=== PATIENT | male | born 1955 | race Caucasian/White ===

== ENCOUNTER 2019-07-04 20:54 | Inpatient (IN) | payer BC, SELFPAY ==
[2019-07-04] VITALS (15 sets, daily range): BP systolic 143–204; BP diastolic 69–114; PULSE 51–62; RESP 16–20; TEMP 36.4–36.8; O2SAT 96–100; BMI 42.4; BMI 39.9
--- NOTE | 2019-07-04 20:55 | EKG12_ITS ---
Test Reason : STROKE TEAM Blood Pressure : / mmHG Vent. Rate : 058 BPM Atrial Rate : 058 BPM P-R Int : 182 ms QRS Dur : 106 ms QT Int : 490 ms P-R-T Axes : -06 -21 137 degrees QTc Int : 481 ms Sinus bradycardia Left ventricular hypertrophy with repolarization abnormality Prolonged QT Abnormal ECG Confirmed by MILA ZARATE, QUINCY ([id number]), medical editor TIMMY LORA ([id number]) on 07/09/2019 10:55:10 AM Referred By: Anil Au Confirmed By:CHOCO ZARAGOZA MD
--- NOTE | 2019-07-04 20:55 | CT_ITS ---
STUDY: CT BRAIN WITHOUT CONTRAST REASON FOR EXAM: Male, 63 years old. LT SIDED WEAKNESS SINCE YESTERDAY -- PT TAKES COUMADIN FOR BLOOD CLOTS -- HX:DIABETES RADIATION DOSAGE (If Supplied By Facility): CTDIvol = ( 44.99 ) mGy, DLP = ( 846.73 ) mGycm TECHNIQUE: Transaxial CT imaging of the brain was performed without administration of intravenous contrast material. Individualized dose optimization techniques were used for this CT. COMPARISON: No relevant priors. FINDINGS: Normal calvarium. There are mild subcentimeter periventricular hypodensities. Normal basal ganglia and thalami. Normal brainstem. Normal cerebellum. There is no intracranial hemorrhage. Normal visualized paranasal sinuses. There is a 2 mm metallic foreign body within the soft tissues anterior to the right maxillary sinus CT/Brain/Head without Contrast IMPRESSION: Subcentimeter deep white matter likely old ischemic changes, if there is clinical concern for acute infarct follow-up MRI brain can be performed 2 mm metallic foreign body within the soft tissues anterior to the right maxillary sinus Telephone report was called to and discussed with Physician: Jonathan Bravo immediately after my review at 9:09 PM 07/04/2019 N.B. : The above information has been verbally conveyed by Nick Jones to Jonathan Bravo MD, on 07/04/2019 21:12:02 (ET). Electronically Signed: Nick Jones, at 21:15 EDT Tel , Service support ,
--- NOTE | 2019-07-04 20:55 | RAD_ITS ---
STUDY: X-RAY CHEST REASON FOR EXAM: Male, 63 years old. left sided weakness TECHNIQUE: Normal chest COMPARISON: None. FINDINGS: There is mild right basilar pulmonary opacity.. There is no demonstrated pleural abnormality. There is mild cardiomegaly. Normal mediastinum and cyndee. Normal visualized pulmonary arteries. Normal visualized aortic arch and descending thoracic aorta. Normal visualized thoracic spine. Normal visualized ribs, clavicles, and shoulders. There is no demonstrated abnormality of the visualized soft tissue structures of the upper abdomen. RAD/Chest 1 View IMPRESSION: Cardiomegaly Mild right basilar pulmonary opacity infiltrate versus subsegmental atelectasis Electronically Signed: Nick Jones, at 22:30 EDT Tel , Service support ,
--- NOTE | 2019-07-04 21:07 | CM.ED ---
Social Work Responding to stroke alert. No family present. Patient alert and speaking with staff. Patient stating family is aware. Patient unable to provide family contact information at this time. Andrzej SUMNER, MAYLIN
[2019-07-04 21:24] LABS: Absolute Neutrophil Count 6.1 X10^3/uL (2.0-7.7); Basophil# 0.09 X10^3/uL; Eosinophil# 0.63 X10^3/uL; Eosinophils% 6.8 % (0-5); Hematocrit 36.4 % (40-54); Hemoglobin 11.9 g/dL (13.0-16.5); Lymphocyte % 18.4 % (19-41); Mean Corp Hgb Conc 32.7 g/dL (32-36); Mean Corpuscular Hgb 30.3 pg (27.0-32.0); Mean Corpuscular Volume 92.6 fL (80-94); Mean Platelet Vol. 11.1 fl (6.2-12.0); Monocyte# 0.68 X10^3/uL; Monocyte% 7.4 % (0-10); NRBC Flagged by Analyzer 0 % (0-5); Neutrophil # 6.11 X10^3/uL (2.7-7.7); Neutrophil % 66.1 % (47-70); Platelet Count 205 K/mm3 (150-450); RBC Distribution Width CV 13.4 % (11.6-14.6); RBC Distribution Width SD 45.8 fl (35.1-43.9); Red Blood Count 3.93 M/mm3 (4.6-6.2); White Blood Count 9.2 K/mm3 (4.4-11.0)
[2019-07-04 21:42] LABS: International Normalized Ratio 1.7; Partial Thromboplast Time 28.9 Seconds (24.1-36.2); Prothrombin Time (Protime)PT. 19.3 SECONDS (11.7-14.9)
[2019-07-04 21:45] LABS: Anion Gap 5 (5-15); BUN 66 mg/dL (7-18); BUN/Creat Ratio 20.7 RATIO (10-20); Calcium,Total 8.8 mg/dL (8.5-10.1); Chloride 101 mmol/L (98-107); Creatinine, Serum 3.19 mg/dL (0.70-1.30); EST Glomerular Filtration Rate 21 mL/min (>60); Est Glom Filt Rate - Afr Amer 25 mL/min (>60); Estimated Creatinine Clearance 21.39 ml/min; Glucose 327 mg/dL (74-106); Potassium 3.6 mmol/L (3.5-5.1); Sodium Level 137 mmol/L (136-145)
--- NOTE | 2019-07-04 22:10 | ED.VIS.GEN ---
History of Present Illness Chief Complaint: Weakness Informant: Patient Onset: Yesterday Narrative: Presents from home by EMS with stroke team initiated prior to arrival. Reported onset of symptoms 5 PM yesterday over 24 hours ago of left-sided weakness. He is a diabetic with no stroke history. He is on warfarin for history of recurrent DVT and PE. Denies headache or visual changes. No speech changes. States was bending over yesterday felt pain in his back however no radicular symptoms when he had trouble walking. States symptoms persistent throughout the day. Does admit to history of chronic kidney disease followed by nephrology in [place]. Prior similar symptoms: No Past Medical History - Allergies and Home Meds Allergies/Adverse Reactions: Allergies No Known Allergies Allergy (Verified 07/04/19 21:13) Primary Care Physician: NOT,DEFINED [Primary Care Provider] - Past Medical History: - - Hypertension, chronic kidney disease, DVT and PE Smoking Status: Never smoker Review of Systems General: Denies: Chills, Fever, Sweats Eyes: Denies: Visual changes - bilaterally, Diplopia ENT: Denies: Rhinorrhea, Sore throat Cardiovascular: Denies: Chest pain, Palpitations Respiratory: Denies: Dyspnea, Cough, Dyspnea on exertion Gastrointestinal: Denies: Abdominal pain, Nausea, Vomiting, Diarrhea, Melena, Hematochezia Genitourinary: Denies: Dysuria, Hematuria, Frequency Musculoskeletal: Denies: Back pain, Extremity Pain Skin: Denies: Rash, Wounds Neurological: Reports: Weakness. Denies: Headache, Numbness Physical Exam Vital Signs/Narrative: Vital Signs Temp Pulse Resp BP Pulse Ox 07/04/19 22:05 61 18 183/74 H 98 07/04/19 21:57 55 L 18 199/76 H 97 07/04/19 21:34 56 L 16 199/79 H 98 07/04/19 21:14 60 16 184/89 H 98 07/04/19 21:13 98 07/04/19 21:02 97.6 F L 62 16 200/99 H 98 07/04/19 20:55 97.6 F L 58 L 16 147/89 H 100 07/04/19 20:54 97.6 F L 60 16 200/99 H 97 Inital Vital Signs reviewed: Yes General: Well nourished, Well developed, No Acute Distress Head: Normocephalic, Atraumatic Eyes: Perrl, EOMI ENT: Moist mucous membranes, No rhinorrhea Neck: Supple, Nontender Cardiovascular: Regular rate, Regular rhythm, No murmurs Respiratory: No distress, CTA bilaterally, Chest nontender Abdomen: Soft, Nontender, Nondistended, Normal bowel sounds Back: Nontender, Normal Inspection Extremities: Nontender, No edema Skin: Normal color, No rash Neurological: Alert, Oriented x3, Cranial nerves II-XII grossly intact, Normal Sensation, - - NIH equals 3 for drifting her left arm and leg and ataxia left upper extremity. There was slight weakness of left lower extremity compared to the right hip flexors. Psychological: Normal affect, Normal Mood Diagnostic/Tx/Re-eval Clinical Impression(s) from Imaging Studies Brain CT 07/04/19 20:55 IMPRESSION: Subcentimeter deep white matter likely old ischemic changes, if there is clinical concern for acute infarct follow-up MRI brain can be performed 2 mm metallic foreign body within the soft tissues anterior to the right maxillary sinus Telephone report was called to and discussed with Physician: Jonathan Bravo immediately after my review at 9:09 PM 07/04/2019 N.B. : The above information has been verbally conveyed by Jonathan Nuñez MD, on 07/04/2019 21:12:02 (ET). Electronically Signed: Nick Jones, at 21:15 EDT Tel , Service support , ADDENDUM: 07/04/192121 IMPRESSION: Subcentimeter deep white matter likely old ischemic changes, if there is clinical concern for acute infarct follow-up MRI brain can be performed 2 mm metallic foreign body within the soft tissues anterior to the right maxillary sinus Telephone report was called to and discussed with Physician: Jonathan Bravo immediately after my review at 9:09 PM 07/04/2019 N.B. : The above information has been verbally conveyed by Jonathan Nuñez MD, on 07/04/2019 21:12:02 (ET). Electronically Signed: Nick Jones at 21:15 EDT Tel , Service support , Chest x-ray one-view portable: Reviewed by myself shows no acute process. Abnormal Lab Results 07/04/19 07/04/19 07/04/19 21:15 21:15 21:15 WBC 9.2 RBC 3.93 L Hgb 11.9 L Hct 36.4 L MCV 92.6 MCH 30.3 MCHC 32.7 RDW Std Deviation 45.8 H RDW Coeff of Conner 13.4 Plt Count 205 MPV 11.1 Immature Gran % (Auto) 0.300 Neut % (Auto) 66.1 Lymph % (Auto) 18.4 L [place] % (Auto) 7.4 Eos % (Auto) 6.8 H Baso % (Auto) 1.0 Absolute Neuts (auto) 6.1 Absolute Lymphs (auto) 1.70 Nucleated RBC % 0 PT 19.3 H INR 1.7 APTT 28.9 Sodium 137 Potassium 3.6 Chloride 101 Carbon Dioxide 31.0 Anion Gap 5 BUN 66 H Creatinine 3.19 H Estim Creat Clear Calc 21.39 Est GFR (MDRD) Af Amer 25 L Est GFR (MDRD) Non-Af 21 L BUN/Creatinine Ratio 20.7 H Glucose 327 H Calcium 8.8 Troponin I 0.041 - EKG Initial EKG Interpretation: Sinus Rhythm - Sinus rate of 58, no ST changes. There is T wave inversions in 1 and aVL. - Medical Decision Making Stroke team initiated continued on arrival. His NIH is a 3. CT head discussing with radiologist was negative for bleeds or acute process. I spoke with stroke neurologist with patient on warfarin and outside the window, no indication for TPA. They did recommend stroke work-up as an inpatient. Labs stable with INR 1.7 creatinine of 3, underlying chronic kidney disease with unknown baseline per patient. Records are out in [place]. EKG is sinus rhythm. I spoke with hospitalist, Dr. Au for admission. ED Disposition - Plan for ED Patient: Disposition: Acute Care Hospital [facility] Diagnosis: CVA (cerebral vascular accident), Left-sided weakness, Chronic kidney disease Referrals: NOT,DEFINED [Primary Care Provider] -
--- NOTE | 2019-07-04 22:53 | PCM.HP.STD ---
Problem List (1) CVA (cerebral vascular accident) Status: Acute (2) Left-sided weakness Status: Acute (3) Chronic kidney disease Status: Chronic History of Present Illness Date of Admission: 07/04/19 Chief Complaint: left sided weakness The patient is a 63 year old M significant history of morbid obesity; hypertension; diabetes mellitus; DVT and PE who presented to the emergency department with left-sided weakness. Patient reports weakness at his left upper extremity and his left lower extremity. His weakness started a day before presentation( more than 24 hours before presentation). Further he reports that a day before his weakness began he had pain in his back from bending over. Past Medical History Past Medical History (Chronic Problems): Chronic Problems Chronic kidney disease (Chronic) Allergies No Known Allergies Allergy (Verified 07/04/19 21:13) Home Medications: Ambulatory Orders Medication Instructions Recorded Clonidine HCl [Catapres] 0.3 mg PO DAILY 07/04/19 Clonidine Patch [Catapres-Tts3] 0.3 mg TRANSDERM. 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 Multiple surgeries of left leg with metal plate in place. IVC filter in place. Smoking Status: Former smoker Alcohol: Occasional - *Family History Maternal History Items: Cancer - lungs, Diabetes Paternal History Items: Stroke Review of Systems Constitutional: Denies: Chills, Fever, Weight Change HEENT: Denies: Head Aches, Sinus Congestion, Sinus Drainage Cardiovascular: Denies: Chest Pain, Palpitations Respiratory: Denies: Cough, Shortness of breath at rest, Sputum production Gastrointestinal: Denies: Abdominal Pain, Nausea, Vomiting Genitourinary: Denies: Dysuria Musculoskeletal: Reports: Back Pain. Denies: Joint Pain, Joint Tenderness Skin: Denies: Rash, Wounds Neurological: Reports: Focal weakness. Denies: Numbness, Tingling Psychiatric: Denies: Anxiety, Depression, Homicidal Ideations, Suicidal Ideations Hematologic/ Lymphatic: Denies: Easy Bruising, Easy Bleeding VTE Information - Inpt Only VTE Present on Admission: No VTE Mechan Device Prophylaxis: None VTE Pharm Prophylaxis ordered?: No Reason prophylaxis not ordered:: Treatment Not Indicated - Continue Coumadin for history of DVT and PE. Patient Problems: Active and Suspected Problems CVA (cerebral vascular accident) (Acute) Left-sided weakness (Acute) - Physical Exam Vitals/I&O's: Vital Signs Temp Pulse Resp BP Pulse Ox 98.1 F 55 L 16 170/101 H 98 07/04/19 22:33 07/04/19 22:33 07/04/19 22:33 07/04/19 22:33 07/04/19 22:33 Oxygen Delivery Method Room Air Weight: 119.3 kg Body Mass Index (BMI) 42.4 Finger Stick Blood Glucose 370 General: Alert, Oriented x3, Cooperative HEENT: Atraumatic, PERRLA, EOMI, Normocephalic Neck: Supple, No JVD, Negative Carotid Bruits Lungs: Clear to auscultation, Normal air movement Cardiovascular: Regular rate, Normal S1, Normal S2, No murmurs Abdomen: Bowel Sounds Present, Soft, Non Tender Extremities: No edema, Capillary Refill Less than 3 Seconds Skin: No rashes, No breakdown Musculoskeletal: No Tenderness to Palpation of Joints or Extremities Neurological: Cranial nerves II-XII grossly intact, Deep Tendon Reflexes 2+/4 and Symmetrical, - - Motor strength in left upper and left lower extremity 4 out of 5. Motor strength in right upper and right lower extremity 5 out of 5. Dysmetria of hands of left hand. Cannot perform [id number] test bilaterally; reports secondary to previous injusries Psych/Mental Status: Normal Affect, Appropriate Laboratory Results 07/04/19 21:15: WBC 9.2, RBC 3.93 L, Hgb 11.9 L, Hct 36.4 L, MCV 92.6, MCH 30.3, MCHC 32.7, RDW Std Deviation 45.8 H, RDW Coeff of Conner 13.4, Plt Count 205, MPV 11.1, Immature Gran % (Auto) 0.300, Neut % (Auto) 66.1, Lymph % (Auto) 18.4 L, [place] % (Auto) 7.4, Eos % (Auto) 6.8 H, Baso % (Auto) 1.0, Absolute Neuts (auto) 6.1, Absolute Lymphs (auto) 1.70, Nucleated RBC % 0 07/04/19 21:15: PT 19.3 H, INR 1.7, APTT 28.9 07/04/19 21:15: Sodium 137, Potassium 3.6, Chloride 101, Carbon Dioxide 31.0, Anion Gap 5, BUN 66 H, Creatinine 3.19 H, Estim Creat Clear Calc 21.39, Est GFR (MDRD) Af Amer 25 L, Est GFR (MDRD) Non-Af 21 L, BUN/Creatinine Ratio 20.7 H, Glucose 327 H, Calcium 8.8, Troponin I 0.041 Assessment/Plan All Active Problems CVA (cerebral vascular accident) (Acute) Left-sided weakness (Acute) The patient is a 63 year old M significant history of morbid obesity; hypertension; diabetes mellitus; DVT and PE who presented to the emergency department with left-sided weakness distant with likely CVA. Likely Acute CVA Subjective and objective findings of left-sided weakness; and ataxia of left upper extremity. NINDS NIH Scale at the was 3 CT of the head showed subcentimeter dep white matter likely old ischemic changes; MRI was recommended for concerns. Also noted was 2 mm metallic foreign body in right maxillary sinus -Check Hba1c, Lipid level Physical therapy, occupational therapy and to work with patient. N.p.o. until bedside swallow eval. Daily aspirin. High intensity statin Patient is outside window of permissive HTN. Continue blood pressure meds. Add PRN hydralazine for systolic blood pressure more than 180. Because of poor kidney function will avoid contrast. Carotid ultrasound ordered. Echocardiogram ordered. 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 On presentation his creatinine was 3.19. No prior records to compare with. 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 Obtain records. Trend BMP. History f DVT and PE INR was 1.7, subtherapeutic on presentation. Escalate Coumadin. Trend INR. Also reportedly he has an IVC filter. Diabetes mellitus with nephropathy On presentation blood glucose was elevated. Adjust home basal and prandial insulin. Add correction scale insulin. Accu-Chek QA CHS. QTC prolongation QTC on presentation was 481. Avoid QTC prolongation drugs. Morbid obesity: BMI of 42.5. Complicates care. Recommend lifestyle modification. DVT Prophylaxis Not indicated since patient is on Coumadin Inpatient E&M: 23906 Init Hosp L2
[2019-07-04] MEDS: 0.9% Normal Saline 1,000 ML 75 ML IV (23:09)
--- NOTE | 2019-07-04 23:28 | ECHOD_ITS ---
Reason For Study: TIA/CVA Procedure This was a 2D Doppler, Color Flow transthoracic echocardiogram. Exam performed portable in patient room. Left Ventricle Normal LV size. Concentric left ventricular hypertrophy. The estimated ejection fraction is 55 %. Stage 2 diastolic dysfunction. No regional wall motion abnormalities noted. Right Ventricle Normal RV size. Normal systolic function. Atria The left atrium is mildly enlarged. Normal right atrium. No doppler evidence for ASD. Bubble contrast study negative for right to left interatrial shunt. Mitral Valve There is no mitral valve stenosis. No mitral valve insufficiency. Tricuspid Valve There is no tricuspid stenosis. Trivial tricuspid valve insufficiency. Unable to estimate RV systolic pressure due to insufficient tricuspid regurgitant envelope. Aortic Valve Trisinus/trileaflet aortic valve. There is no aortic stenosis. No aortic valve insufficiency. Pulmonic Valve There is no pulmonic valvular stenosis. No pulmonic valve insufficiency. Great Vessels Normal aortic root. Pericardium/Pleural No pericardial effusion. Medication Performed a rapid injection of agitated mix of 9 cc saline and 1cc air to assess for atrial septal defect. x 2. MMode/2D Measurements & Calculations LVIDd: 5.4 cm IVSd: 1.7 cm Ao root diam: 3.4 cm LVIDs: 4.0 cm LVPWd: 1.7 cm RVDd: 3.9 cm FS: 25.9 % LAV(MOD-bp): 95.4 ml LA A4 area: 29.4 cm2 LA dimension(2D): 3.8 cm LAV(MOD-bp) Indexed: 42.5 ml/m2 LAV(MOD-sp2): 89.2 ml LAV(MOD-sp4): 100.2 ml RA A4 area: 24.0 cm2 Time Measurements MV dec time: 0.30 sec Doppler Measurements & Calculations MV E max finn: 58.2 cm/sec Lat Peak E' Finn: 4.6 cm/sec Med Peak E' Finn: 4.1 cm/sec MV A max finn: 86.1 cm/sec E/E' lat: 12.5 E/E' med: 14.3 MV E/A: 0.68 Ao V2 max: 122.8 cm/sec LV V1 max: 91.5 cm/sec PA V2 max: 99.5 cm/sec Ao max P.0 mmHg LV V1 max P.3 mmHg Interpretation Summary Concentric left ventricular hypertrophy. The estimated ejection fraction is 55 %. Stage 2 diastolic dysfunction. Bubble contrast study negative for right to left interatrial shunt. The left atrium is mildly enlarged. Ordering Physician: Anil Au Referring Physician: Aliza Tucker Performed By: Nieves Ac, MORTEZACS, RVT
--- NOTE | 2019-07-04 23:28 | CDU_ITS ---
Reason For Study: CVA Rt. Velocities/BP Lt. Velocities/BP Prox CCA 86.5/9.5 cm/sec. Prox CCA 126.6/11.5 cm/sec. Mid CCA 73.4/9.5 cm/sec. Mid CCA 91.6/13.5 cm/sec. Dist CCA 78.6/9.5 cm/sec. Dist CCA 68.5/9.1 cm/sec. Prox ICA 51.3/13.5 cm/sec. Prox ICA 78.4/19 cm/sec. Mid ICA 67.4/19.2 cm/sec. Mid ICA 74/14.6 cm/sec. Dist ICA 68.3/12.6 cm/sec. Dist ICA 66.3/14.5 cm/sec. Rt. ICA/CCA = 0.88. Lt. ICA/CCA = 0.86. Prox ECA 108.6 cm/sec. Prox ECA 86.1 cm/sec. Rt. Vert. 40/10.7 cm/sec. Lt. Vert. 36/8.1 cm/sec. Right Extracranial There is intimal thickening but no significant atherosclerotic plaque noted in the right common carotid artery. There is heterogeneous, irregular atherosclerotic plaque noted in the right internal carotid artery. There is intimal thickening but no significant atherosclerotic plaque noted in the right external carotid artery. Antegrade flow is noted in the right vertebral artery. Left Extracranial There is intimal thickening but no significant atherosclerotic plaque noted in the left common carotid artery. There is heterogeneous, irregular atherosclerotic plaque noted in the left internal carotid artery. The atherosclerotic plaque causes acoustic shadowing. The left external carotid artery is not well visualized. Antegrade flow is noted in the left vertebral artery. Procedure Carotid Duplex 20798. Exam performed portable in patient room. 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 <50% stenosis right external carotid Calcific plague at the proximal left internal carotid <50% stenosis left proximal internal carotid <50% stenosis left external carotid Patent, antegrade vertebrals bilaterally Ordering Physician: Anil Au Referring Physician: Aliza Tucker Performed By: Danyelle Lopez RVT
[2019-07-05] VITALS (19 sets, daily range): BP systolic 113–193; BP diastolic 65–81; PULSE 43–60; RESP 16–20; TEMP 36.3–36.9; O2SAT 95–99; BMI 39.9
[2019-07-05] MEDS: Insulin Lispro 100 UNIT/ML INSULN.PEN 10 UNIT SC ×4 (00:28→17:17)
[2019-07-05] MEDS: CLARIFY ORDER 1 EACH NOTE (00:32)
[2019-07-05] MEDS: Atorvastatin Calcium 80 MG Tablet PO ×2 (00:32→21:28)
[2019-07-05 00:45] LABS: Bedside Glucose 317 mg/dL (70-110)
[2019-07-05] MEDS: hydrALAZINE 50 MG Tablet 100 MG PO ×3 (05:13→21:24)
[2019-07-05 06:08] LABS: Absolute Lymphocyte Count 1.92 X10^3/uL (0.83-4.51); Absolute Neutrophil Count 4.5 X10^3/uL (2.0-7.7); Basophil# 0.08 X10^3/uL; Eosinophil# 0.64 X10^3/uL; Eosinophils% 8.2 % (0-5); Hemoglobin 11.7 g/dL (13.0-16.5); Lymphocyte # 1.92 X10^3/ul (4.0); Lymphocyte % 24.5 % (19-41); Mean Corp Hgb Conc 31.6 g/dL (32-36); Mean Corpuscular Hgb 29.5 pg (27.0-32.0); Mean Corpuscular Volume 93.4 fL (80-94); Mean Platelet Vol. 11.5 fl (6.2-12.0); Monocyte# 0.67 X10^3/uL; Monocyte% 8.6 % (0-10); NRBC Flagged by Analyzer 0 % (0-5); Neutrophil % 57.4 % (47-70); Platelet Count 218 K/mm3 (150-450); RBC Distribution Width CV 13.6 % (11.6-14.6); RBC Distribution Width SD 46.1 fl (35.1-43.9); Red Blood Count 3.96 M/mm3 (4.6-6.2); White Blood Count 7.8 K/mm3 (4.4-11.0)
[2019-07-05 06:22] LABS: International Normalized Ratio 1.6; Prothrombin Time (Protime)PT. 18.6 SECONDS (11.7-14.9)
[2019-07-05 06:29] LABS: Anion Gap 7 (5-15); BUN 60 mg/dL (7-18); BUN/Creat Ratio 21.2 RATIO (10-20); Calcium,Total 8.5 mg/dL (8.5-10.1); Chloride 102 mmol/L (98-107); Cholesterol 182 mg/dL (200); Creatinine, Serum 2.83 mg/dL (0.70-1.30); EST Glomerular Filtration Rate 24 mL/min (>60); Est Glom Filt Rate - Afr Amer 29 mL/min (>60); Estimated Creatinine Clearance 24.11 ml/min; Glucose 187 mg/dL (74-106); High Density Lipoprotein 30 mg/dL; Sodium Level 137 mmol/L (136-145); Triglycerides 216 mg/dL; Very Low Density Lipoprotein 43 mg/dL (5-40)
[2019-07-05 06:55] LABS: Bedside Glucose 184 mg/dL (70-110)
[2019-07-05] MEDS: Insulin Lispro 100 UNIT/ML INSULN.PEN SC ×3 (09:15→21:23)
[2019-07-05] MEDS: cloNIDine HCl 0.1 MG Tablet 0.3 MG PO (09:16)
[2019-07-05] MEDS: Aspirin 81 MG TAB.CHEW PO (09:16)
[2019-07-05] MEDS: hydroCHLOROthiazide 25 MG Tablet 50 MG PO (09:18)
--- NOTE | 2019-07-05 10:00 | PN_ITS ---
<Norma Nelson - Last Filed: 07/05/19 12:27> Patient Problems: Active and Suspected Problems CVA (cerebral vascular accident) (Acute) Left-sided weakness (Acute) Subjective: Patient seen and examined. Left upper extremity and left lower extremity ataxia and strength slightly improved. Denies new neurologic symptoms or focal deficits. Patient agreeable to rehab. Tearful during assessment and concerned about getting left-sided return of function. - Physical Exam Vitals/I&O's: Vital Signs Temp Pulse Resp BP Pulse Ox 97.7 F L 46 L 16 193/80 H 96 07/05/19 08:00 07/05/19 08:00 07/05/19 08:00 07/05/19 08:00 07/05/19 08:00 Oxygen Delivery Method Room Air Weight: 247 lb 9.266 oz Body Mass Index (BMI) 39.9 Finger Stick Blood Glucose 370 Intake and Output for Last 24 Hours 07/03/19 07/04/19 07/05/19 23:59 23:59 23:59 Output Total 950 / 950 Balance -950 / -950 General: Alert, Oriented x3, Cooperative HEENT: Atraumatic, PERRLA, EOMI, Normocephalic Neck: Supple, No JVD, Negative Carotid Bruits Lungs: Clear to auscultation, Normal air movement Cardiovascular: Regular rate, Regular Rhythm, Normal S1, Normal S2, No murmurs Abdomen: Bowel Sounds Present, Soft, Non Tender, Non-Distended Extremities: No clubbing, No cyanosis, No edema, Capillary Refill Less than 3 Seconds Skin: No rashes, No breakdown Musculoskeletal: No Tenderness to Palpation of Joints or Extremities Neurological: Cranial nerves II-XII grossly intact, - - Left upper extremity and left lower extremity weakness, left lower extremity drift. Left-sided ataxia. Psych/Mental Status: Normal Affect, Appropriate Laboratory Results 07/04/19 21:15: WBC 9.2, RBC 3.93 L, Hgb 11.9 L, Hct 36.4 L, MCV 92.6, MCH 30.3, MCHC 32.7, RDW Std Deviation 45.8 H, RDW Coeff of Conner 13.4, Plt Count 205, MPV 11.1, Immature Gran % (Auto) 0.300, Neut % (Auto) 66.1, Lymph % (Auto) 18.4 L, Schley % (Auto) 7.4, Eos % (Auto) 6.8 H, Baso % (Auto) 1.0, Absolute Neuts (auto) 6.1, Absolute Lymphs (auto) 1.70, Nucleated RBC % 0 07/04/19 21:15: PT 19.3 H, INR 1.7, APTT 28.9 07/04/19 21:15: Sodium 137, Potassium 3.6, Chloride 101, Carbon Dioxide 31.0, Anion Gap 5, BUN 66 H, Creatinine 3.19 H, Estim Creat Clear Calc 21.39, Est GFR (MDRD) Af Amer 25 L, Est GFR (MDRD) Non-Af 21 L, BUN/Creatinine Ratio 20.7 H, Glucose 327 H, Calcium 8.8, Troponin I 0.041 07/05/19 00:25: POC Glucose 317 H 07/05/19 05:20: Sodium 137, Potassium 3.0 L, Chloride 102, Carbon Dioxide 28.0, Anion Gap 7, BUN 60 H, Creatinine 2.83 H, Estim Creat Clear Calc 24.11, Est GFR (MDRD) Af Amer 29 L, Est GFR (MDRD) Non-Af 24 L, BUN/Creatinine Ratio 21.2 H, Glucose 187 H, Calcium 8.5, Triglycerides 216 H, Cholesterol 182, LDL Cholesterol 109, VLDL Cholesterol 43 H, HDL Cholesterol 30 L 07/05/19 05:20: WBC 7.8, RBC 3.96 L, Hgb 11.7 L, Hct 37.0 L, MCV 93.4, MCH 29.5, MCHC 31.6 L, RDW Std Deviation 46.1 H, RDW Coeff of Conner 13.6, Plt Count 218, MPV 11.5, Immature Gran % (Auto) 0.300, Neut % (Auto) 57.4, Lymph % (Auto) 24.5, Schley % (Auto) 8.6, Eos % (Auto) 8.2 H, Baso % (Auto) 1.0, Absolute Neuts (auto) 4.5, Absolute Lymphs (auto) 1.92, Nucleated RBC % 0 07/05/19 05:20: PT 18.6 H, INR 1.6 07/05/19 05:20: Hemoglobin A1c 9.0 H 07/05/19 06:48: POC Glucose 184 H Current Medications Acetaminophen (Tylenol) 650 mg PO Q6H PRN PRN PRN Reason: Pain Score 1-10/Temp > 100.7 F Aspirin (Aspirin, Baby) 81 mg PO DAILY@0800 [facility] Last Admin: 07/05/19 09:16 Dose: 81 mg Documented by: Atorvastatin Calcium (Lipitor) 80 mg PO QHS [facility] Last Admin: 07/05/19 00:32 Dose: 80 mg Documented by: Clonidine (Catapres) 0.3 mg PO DAILY [facility] Last Admin: 07/05/19 09:16 Dose: 0.3 mg Documented by: Clonidine HCl (Catapres-Tts3) 0.3 mg TRANSDERM. Q7D [facility] Dextrose (D50w Syringe) 0 gm IV X1 PRN; Protocol PRN Reason: Hypoglycemia Glucagon () 1 mg IM .X1 PRN PRN Reason: Hypoglycemia Hydralazine HCl (Apresoline) 100 mg PO TID [facility] Last Admin: 07/05/19 05:13 Dose: 100 mg Documented by: Hydralazine HCl (Apresoline Iv) 5 mg IV Q4H PRN PRN PRN Reason: sbp > 180 Hydrochlorothiazide (Hctz) 50 mg PO DAILY [facility] Last Admin: 07/05/19 09:18 Dose: 50 mg Documented by: Sodium Chloride () 250 mls @ 15 mls/hr IV .[id number] PRN PRN Reason: Saline Flush Sodium Chloride () 250 mls @ 15 mls/hr IV .[id number] PRN PRN Reason: Additional IVPB Infusion Insulin Glargine (Lantus (Bkc)) 15 units SC BID [facility] Last Admin: 07/05/19 09:19 Dose: 15 u Documented by: Insulin Human Lispro (Humalog Kwikpen (Bkc)) 10 unit SC BREAKFAST [facility] Last Admin: 07/05/19 09:15 Dose: 10 units Documented by: Insulin Human Lispro (Humalog Kwikpen (Bkc)) 10 unit SC DINNER [facility] Insulin Human Lispro (Humalog Kwikpen (Bkc)) 10 unit SC LUNCH [facility] Insulin Human Lispro (Humalog Kwikpen (Bkc)) 0 unit SC ACHS [facility]; Protocol Last Admin: 07/05/19 09:15 Dose: 2 units Documented by: Labetalol HCl (Trandate) 200 mg PO TID [facility] Last Admin: 07/05/19 05:12 Dose: Not Given Documented by: Sodium Chloride () 10 - 40 ml IV UD PRN PRN Reason: SALINE FLUSH Warfarin Sodium (Coumadin (Pbkc)) 8 mg PO DAILY@1700 [facility] Last Admin: 07/05/19 00:31 Dose: 8 mg Documented by: Medical Necessity - Tobacco Use Smoking Status: Former smoker Tobacco Use: Cigarettes Assessment/Plan All Active Problems CVA (cerebral vascular accident) (Acute) Left-sided weakness (Acute) 1. Suspected acute CVA with left-sided weakness-brain CT without acute infarct. Unable to have MRI. Continue aspirin, statin. PT/OT/ST. Consult tele- neurology. Patient agreeable to Rehab Unit at discharge. 2. Hypertension-poorly controlled. Continue home clonidine, hydralazine, hydrochlorothiazide and labetalol. Adjust as necessary. 3. Hyperlipidemia-continue statin. 4. Type 2 diabetes mellitus-continue home insulin regimen. Hemoglobin A1c 9%. 5. Chronic kidney disease stage III-continue outpatient follow-up with nephrology. 6. 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 7. CHRISTIAN-unable to tolerate CPAP. 8. Obesity-encouraged diet and lifestyle modifications. DVT prophylaxis-Coumadin This patient was seen by REBA Mercedes under the supervision of Dr. Del Toro. <Fredrick Del Toro - Last Filed: 07/05/19 15:10> - Physical Exam Vitals/I&O's: Vital Signs Temp Pulse Resp BP Pulse Ox 97.7 F L 58 L 17 113/65 98 07/05/19 11:25 07/05/19 11:25 07/05/19 11:25 07/05/19 11:25 07/05/19 11:25 Oxygen Delivery Method Room Air Weight: 112.3 kg Body Mass Index (BMI) 39.9 Finger Stick Blood Glucose 370 Intake and Output for Last 24 Hours 07/03/19 07/04/19 07/05/19 23:59 23:59 23:59 Intake Total 660 / 660 Output Total 1600 / 1600 Balance -940 / -940 Laboratory Results 07/04/19 21:15: WBC 9.2, RBC 3.93 L, Hgb 11.9 L, Hct 36.4 L, MCV 92.6, MCH 30.3, MCHC 32.7, RDW Std Deviation 45.8 H, RDW Coeff of Conner 13.4, Plt Count 205, MPV 11.1, Immature Gran % (Auto) 0.300, Neut % (Auto) 66.1, Lymph % (Auto) 18.4 L, Schley % (Auto) 7.4, Eos % (Auto) 6.8 H, Baso % (Auto) 1.0, Absolute Neuts (auto) 6.1, Absolute Lymphs (auto) 1.70, Nucleated RBC % 0 07/04/19 21:15: PT 19.3 H, INR 1.7, APTT 28.9 07/04/19 21:15: Sodium 137, Potassium 3.6, Chloride 101, Carbon Dioxide 31.0, Anion Gap 5, BUN 66 H, Creatinine 3.19 H, Estim Creat Clear Calc 21.39, Est GFR (MDRD) Af Amer 25 L, Est GFR (MDRD) Non-Af 21 L, BUN/Creatinine Ratio 20.7 H, Glucose 327 H, Calcium 8.8, Troponin I 0.041 07/05/19 00:25: POC Glucose 317 H 07/05/19 05:20: Sodium 137, Potassium 3.0 L, Chloride 102, Carbon Dioxide 28.0, Anion Gap 7, BUN 60 H, Creatinine 2.83 H, Estim Creat Clear Calc 24.11, Est GFR (MDRD) Af Amer 29 L, Est GFR (MDRD) Non-Af 24 L, BUN/Creatinine Ratio 21.2 H, Glucose 187 H, Calcium 8.5, Triglycerides 216 H, Cholesterol 182, LDL Cholesterol 109, VLDL Cholesterol 43 H, HDL Cholesterol 30 L 07/05/19 05:20: WBC 7.8, RBC 3.96 L, Hgb 11.7 L, Hct 37.0 L, MCV 93.4, MCH 29.5, MCHC 31.6 L, RDW Std Deviation 46.1 H, RDW Coeff of Conner 13.6, Plt Count 218, MPV 11.5, Immature Gran % (Auto) 0.300, Neut % (Auto) 57.4, Lymph % (Auto) 24.5, Schley % (Auto) 8.6, Eos % (Auto) 8.2 H, Baso % (Auto) 1.0, Absolute Neuts (auto) 4.5, Absolute Lymphs (auto) 1.92, Nucleated RBC % 0 07/05/19 05:20: PT 18.6 H, INR 1.6 07/05/19 05:20: Hemoglobin A1c 9.0 H 07/05/19 06:48: POC Glucose 184 H 07/05/19 11:36: POC Glucose 192 H Current Medications Acetaminophen (Tylenol) 650 mg PO Q6H PRN PRN PRN Reason: Pain Score 1-10/Temp > 100.7 F Aspirin (Aspirin, Baby) 81 mg PO DAILY@0800 [facility] Last Admin: 07/05/19 09:16 Dose: 81 mg Documented by: Atorvastatin Calcium (Lipitor) 80 mg PO QHS [facility] Last Admin: 07/05/19 00:32 Dose: 80 mg Documented by: Clonidine (Catapres) 0.3 mg PO DAILY [facility] Last Admin: 07/05/19 09:16 Dose: 0.3 mg Documented by: Clonidine HCl (Catapres-Tts3) 0.3 mg TRANSDERM. Q7D [facility] Dextrose (D50w Syringe) 0 gm IV X1 PRN; Protocol PRN Reason: Hypoglycemia Glucagon () 1 mg IM .X1 PRN PRN Reason: Hypoglycemia Hydralazine HCl (Apresoline) 100 mg PO TID [facility] Last Admin: 07/05/19 05:13 Dose: 100 mg Documented by: Hydralazine HCl (Apresoline Iv) 5 mg IV Q4H PRN PRN PRN Reason: sbp > 180 Hydrochlorothiazide (Hctz) 50 mg PO DAILY [facility] Last Admin: 07/05/19 09:18 Dose: 50 mg Documented by: Sodium Chloride () 250 mls @ 15 mls/hr IV .[id number] PRN PRN Reason: Saline Flush Sodium Chloride () 250 mls @ 15 mls/hr IV .[id number] PRN PRN Reason: Additional IVPB Infusion Insulin Glargine (Lantus ([facility])) 15 units SC BID [facility] Last Admin: 07/05/19 09:19 Dose: 15 u Documented by: Insulin Human Lispro (Humalog Kwikpen ([facility])) 10 unit SC BREAKFAST [facility] Last Admin: 07/05/19 09:15 Dose: 10 units Documented by: Insulin Human Lispro (Humalog Kwikpen (Bkc)) 10 unit SC DINNER [facility] Insulin Human Lispro (Humalog Kwikpen (Bkc)) 10 unit SC LUNCH [facility] Last Admin: 07/05/19 11:38 Dose: 10 units Documented by: Insulin Human Lispro (Humalog Kwikpen (Bkc)) 0 unit SC ACHS [facility]; Protocol Last Admin: 07/05/19 11:39 Dose: 2 units Documented by: Labetalol HCl (Trandate) 200 mg PO TID [facility] Last Admin: 07/05/19 05:12 Dose: Not Given Documented by: Potassium Chloride (K-Dur) 40 meq PO BIDCM [facility] Stop: 07/05/19 17:01 Last Admin: 07/05/19 11:37 Dose: 40 meq Documented by: Sodium Chloride () 10 - 40 ml IV UD PRN PRN Reason: SALINE FLUSH Warfarin Sodium (Coumadin (Pbkc)) 8 mg PO DAILY@1700 [facility] Last Admin: 07/05/19 00:31 Dose: 8 mg Documented by: Assessment/Plan This patient was seen in conjunction with REBA Mercedes . I have independently interviewed and examined the patient and reviewed pertinent historical, laboratory, and other data. Please refer to REBA Mercedes note for details of this patient's presentation, findings, and recommendations. I have reviewed REBA Mercedes note and concur with documented findings. In brief, patient is a 63-year-old gentleman with single risk factors including poorly controlled diabetes mellitus type 2 as well as hypertension who presented with left-sided weakness CT was negative for acute CVA an MRI could not be obtained in view of patient having a metal in the skull Physical Examination: GENERAL: cooperative HEENT: Atraumatic; EYES; Anicteric, Normal Conjunctiva NECK; supple, normal thyroid, RESPIRATORY: Diminished to auscultation CARDIOVASCULAR: Regular S1 S2, GI: soft, normoactive bowel sounds, : No Renal angle tenderness; EXTREMITIES: No edema, no clubbing, MUSCULOSKELETAL: no muscle waisting NEURO: Awake; left sided weakness (3/5 in 4/5 in the leg) SKIN: No Rash PSYCH; Flat affect Assessment: 1. Assessed suspected acute ischemic CVA with left-sided weakness ?Patient has been admitted to monitored bed where she is currently being managed per protocol. Patient was seen in consultation by neurology note and recommendations reviewed 2. Hypertension ~ blood pressure controlled, home medications continued with dose adjustment as needed 3. Dyslipidemia ~patient is on statin therapy, continued at home dose 4. Diabetes mellitus type II ~C controlled with a hemoglobin A1c of 9 ;patient's oral hypoglycemics held. Placed on long acting insulin, Accu-Cheks a.c. and at bedtime and covered with sliding scale insulin . History of previous DVT/PE ?Status post IVC filter as well as use of Coumadin INR was however subtherapeutic on admission 5. Obstructive sleep apnea ?Patient apparently unable to tolerate CPAP 6. Obesity with BMI of 40 ?Weight loss advised 7. DVT prophylaxis patient already on Coumadin no additional measures required Recommendations: 1. I have discussed the results of my overview and impressions with the patient 2. Options for management were reviewed Inpatient E&M: [id number] [facility] L3
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
--- NOTE | 2019-07-05 12:28 | CT_ITS ---
STUDY: CT BRAIN WITHOUT CONTRAST REASON FOR EXAM: Male, 63 years old. Follow-up stroke. RADIATION DOSAGE (If Supplied By Facility): CTDIvol = ( 60.81 ) mGy, DLP = ( 1089.89 ) mGycm TECHNIQUE: Transaxial CT imaging of the brain was performed without administration of intravenous contrast material. Coronal and sagittal reconstructions were performed. Individualized dose optimization techniques were used for this CT. COMPARISON: CT head without contrast 07/04/2019. FINDINGS: Normal soft tissue structures. Normal calvarium. Hypodense lacunar ischemic infarct in the right posterior internal capsule bordering the right thalamus. Normal ventricles and cisterns. Hypodensity in the right forceps major is chronic white matter ischemic change and unchanged. Normal basal ganglia and thalami. Normal brainstem. Normal cerebellum. There is no intracranial hemorrhage. Normal visualized paranasal sinuses. CT/Brain/Head without Contrast IMPRESSION: 1. Hypodense lacunar ischemic infarct in the right posterior internal capsule (series 1002, images 21-22). This is most likely recent. 2. No CT evidence of intracranial bleeding and no other additional findings or changes since 07/04/2019. Electronically Signed: Sae Baker MD at 13:10 EDT , Service support ,
[2019-07-05 14:00] LABS: Bedside Glucose 192 mg/dL (70-110)
[2019-07-05] MEDS: Labetalol 200 MG Tablet PO ×2 (17:16→22:51)
[2019-07-05 18:35] LABS: Bedside Glucose 121 mg/dL (70-110)
[2019-07-05 21:45] LABS: Bedside Glucose 227 mg/dL (70-110)
[2019-07-06] VITALS (16 sets, daily range): BP systolic 119–178; BP diastolic 64–80; PULSE 47–77; RESP 15–18; TEMP 36.5–36.7; O2SAT 95–99; BMI 39.9
[2019-07-06] MEDS: Labetalol 200 MG Tablet PO ×3 (05:27→22:38)
[2019-07-06] MEDS: hydrALAZINE 50 MG Tablet 100 MG PO ×3 (05:27→22:39)
[2019-07-06 05:44] LABS: International Normalized Ratio 1.8; Prothrombin Time (Protime)PT. 20.7 SECONDS (11.7-14.9)
[2019-07-06 05:57] LABS: Anion Gap 5 (5-15); BUN 54 mg/dL (7-18); BUN/Creat Ratio 20.8 RATIO (10-20); Calcium,Total 8.6 mg/dL (8.5-10.1); Chloride 105 mmol/L (98-107); Creatinine, Serum 2.59 mg/dL (0.70-1.30); EST Glomerular Filtration Rate 27 mL/min (>60); Est Glom Filt Rate - Afr Amer 32 mL/min (>60); Estimated Creatinine Clearance 26.34 ml/min; Glucose 191 mg/dL (74-106); Potassium 3.6 mmol/L (3.5-5.1); Sodium Level 137 mmol/L (136-145)
[2019-07-06] MEDS: Insulin Lispro 100 UNIT/ML INSULN.PEN SC (06:52)
[2019-07-06 07:00] LABS: Bedside Glucose 213 mg/dL (70-110)
[2019-07-06] MEDS: Aspirin 81 MG TAB.CHEW PO (08:25)
[2019-07-06] MEDS: hydroCHLOROthiazide 25 MG Tablet 50 MG PO (08:25)
[2019-07-06] MEDS: cloNIDine HCl 0.1 MG Tablet 0.3 MG PO (08:25)
[2019-07-06] MEDS: Insulin Lispro 100 UNIT/ML INSULN.PEN 10 UNIT SC ×3 (08:33→16:58)
--- NOTE | 2019-07-06 09:04 | CASEMGMT ---
Addendum entered by Dania Perez 07/06/19 09:17: Phone call to pt and updated on d/c plan and she is agreeable. CESIA Dumont Original Note: Social Work SW spoke with physician who states pt would be good candidate for Inpatient Rehab. Phone call to [facility] and they will have a bed available tomorrow and can start precert with insurance today. SW met with pt and informed of above and he is agreeable. Plan: Inpatient Rehab, pending insurance precert CESIA Dumont
[2019-07-06] MEDS: Sodium Chloride 0.65% 1 SPRAY SPRAY.BTL 2 SPRAY NASAL ×2 (10:32→14:52)
--- NOTE | 2019-07-06 10:54 | PN_ITS ---
Patient Problems: Active and Suspected Problems CVA (cerebral vascular accident) (Acute) Left-sided weakness (Acute) Reason for Visit: Follow-up acute CVA Subjective: Patient is a 63-year-old gentleman with single risk factors including poorly controlled diabetes mellitus type 2 as well as hypertension who presented with left-sided weakness CT was negative for acute CVA an MRI could not be obtained in view of patient having a metal in the skull Objective: GENERAL: cooperative HEENT: Atraumatic; EYES; Anicteric, Normal Conjunctiva NECK; supple, normal thyroid, RESPIRATORY: Diminished to auscultation CARDIOVASCULAR: Regular S1 S2, GI: soft, normoactive bowel sounds, : No Renal angle tenderness; EXTREMITIES: No edema, no clubbing, MUSCULOSKELETAL: no muscle waisting NEURO: Awake; left sided weakness (3/5 in 4/5 in the leg) SKIN: No Rash PSYCH; Flat affect Vitals/I&O's: Vital Signs Temp Pulse Resp BP Pulse Ox 97.9 F 54 L 15 127/68 H 98 07/06/19 08:17 07/06/19 08:17 07/06/19 08:17 07/06/19 08:17 07/06/19 08:17 Oxygen Delivery Method Room Air Weight: 112.3 kg Body Mass Index (BMI) 39.9 Finger Stick Blood Glucose 370 Intake and Output for Last 24 Hours 07/04/19 07/05/19 07/06/19 23:59 23:59 23:59 Intake Total 2735 / 2735 300 / 300 Output Total 2300 / 2300 750 / 750 Balance 435 / 435 -450 / -450 Laboratory Results 07/05/19 11:36: POC Glucose 192 H 07/05/19 17:10: POC Glucose 121 H 07/05/19 21:21: POC Glucose 227 H 07/06/19 05:10: PT 20.7 H, INR 1.8 07/06/19 05:10: Sodium 137, Potassium 3.6, Chloride 105, Carbon Dioxide 27.0, Anion Gap 5, BUN 54 H, Creatinine 2.59 H, Estim Creat Clear Calc 26.34, Est GFR (MDRD) Af Amer 32 L, Est GFR (MDRD) Non-Af 27 L, BUN/Creatinine Ratio 20.8 H, Glucose 191 H, Calcium 8.6 07/06/19 06:50: POC Glucose 213 H Current Medications Acetaminophen (Tylenol) 650 mg PO Q6H PRN PRN PRN Reason: Pain Score 1-10/Temp > 100.7 F Aspirin (Aspirin, Baby) 81 mg PO DAILY@0800 [facility] Last Admin: 07/06/19 08:25 Dose: 81 mg Documented by: Atorvastatin Calcium (Lipitor) 80 mg PO QHS [facility] Last Admin: 07/05/19 21:28 Dose: 80 mg Documented by: Clonidine (Catapres) 0.3 mg PO DAILY [facility] Last Admin: 07/06/19 08:25 Dose: 0.3 mg Documented by: Clonidine HCl (Catapres-Tts3) 0.3 mg TRANSDERM. Q7D [facility] Dextrose (D50w Syringe) 0 gm IV X1 PRN; Protocol PRN Reason: Hypoglycemia Fluticasone Propionate (Flonase Nasal [place]) 2 spray NASAL DAILY PRN PRN Reason: SINUS CONGESTION Glucagon () 1 mg IM .X1 PRN PRN Reason: Hypoglycemia Hydralazine HCl (Apresoline) 100 mg PO TID [facility] Last Admin: 07/06/19 05:27 Dose: 100 mg Documented by: Hydralazine HCl (Apresoline Iv) 5 mg IV Q4H PRN PRN PRN Reason: sbp > 180 Hydrochlorothiazide (Hctz) 50 mg PO DAILY [facility] Last Admin: 07/06/19 08:25 Dose: 50 mg Documented by: Sodium Chloride () 250 mls @ 15 mls/hr IV .[id number] PRN PRN Reason: Saline Flush Sodium Chloride () 250 mls @ 15 mls/hr IV .[id number] PRN PRN Reason: Additional IVPB Infusion Insulin Glargine (Lantus (Bkc)) 15 units SC BID [facility] Last Admin: 07/06/19 08:32 Dose: 15 u Documented by: Insulin Human Lispro (Humalog Kwikpen (Bk)) 10 unit SC BREAKFAST [facility] Last Admin: 07/06/19 08:33 Dose: 10 units Documented by: Insulin Human Lispro (Humalog Kwikpen (Bkc)) 10 unit SC DINNER [facility] Last Admin: 07/05/19 17:17 Dose: 10 units Documented by: Insulin Human Lispro (Humalog Kwikpen (Bkc)) 10 unit SC LUNCH [facility] Last Admin: 07/05/19 11:38 Dose: 10 units Documented by: Insulin Human Lispro (Humalog Kwikpen (Bkc)) 0 unit SC ACHS [facility]; Protocol Last Admin: 07/06/19 06:52 Dose: 4 units Documented by: Labetalol HCl (Trandate) 200 mg PO TID [facility] Last Admin: 07/06/19 05:27 Dose: 200 mg Documented by: Sodium Chloride () 10 - 40 ml IV UD PRN PRN Reason: SALINE FLUSH Sodium Chloride ([place] Nasal [place]) 2 spray NASAL TID PRN PRN PRN Reason: NASAL DRYNESS Last Admin: 07/06/19 10:32 Dose: 2 spray Documented by: Warfarin Sodium (Coumadin (Pbkc)) 8 mg PO DAILY@1700 [facility] Last Admin: 07/05/19 17:18 Dose: 8 mg Documented by: STROKE Vital Signs/Narrative: Vital Signs Temp Pulse Resp BP Pulse Ox 07/06/19 08:17 97.9 F 54 L 15 127/68 H 98 Medical Necessity - Tobacco Use Smoking Status: Former smoker Tobacco Use: Cigarettes Assessment/Plan All Active Problems CVA (cerebral vascular accident) (Acute) Left-sided weakness (Acute) In brief, patient is a 63-year-old gentleman with single risk factors including poorly controlled diabetes mellitus type 2 as well as hypertension who presented with left-sided weakness CT was negative for acute CVA an MRI could not be obtained in view of patient having a metal in the skull 1. Assessed suspected acute ischemic CVA with left-sided weakness ?Patient has been admitted to monitored bed where she is currently being managed per protocol. Patient was seen in consultation by neurology note and recommendations reviewed -07/06/2019: Repeat head CT demonstrated Hypodense lacunar ischemic infarct in the right posterior internal capsule currently undergoing therapy with plans for patient to be transferred to the inpatient rehab unit on 07/07/2019 2. Hypertension ~ blood pressure controlled, home medications except for HCTZ continued with dose adjustment as needed 3. Dyslipidemia ~patient is on statin therapy, continued at home dose 4. Diabetes mellitus type II ~C controlled with a hemoglobin A1c of 9 ;patient's oral hypoglycemics held. Placed on long acting insulin, Accu-Cheks a.c. and at bedtime and covered with sliding scale insulin . History of previous DVT/PE ?Status post IVC filter as well as use of Coumadin INR was however subtherapeutic on admission 5. Obstructive sleep apnea ?Patient apparently unable to tolerate CPAP 6. Obesity with BMI of 40 ?Weight loss advised 7. DVT prophylaxis patient already on Coumadin no additional measures required 8. Chronic kidney disease stage IV secondary to diabetic nephropathy ?Plan is for patient to follow-up with nephrology following his discharge. Patient is on HCTZ this was discontinued Clinical Impression(s) from Imaging Studies Brain CT 07/05/19 12:28 IMPRESSION: 1. Hypodense lacunar ischemic infarct in the right posterior internal capsule (series 1002, images 21-22). This is most likely recent. 2. No CT evidence of intracranial bleeding and no other additional findings or changes since 07/04/2019. Electronically Signed: Sae Baker MD at 13:10 EDT , Service support , Inpatient E&M: [id number] [facility]s Hosp L2
[2019-07-06] MEDS: Fluticasone 0.05% 1 SPRAY NASAL.SRY 2 SPRAY NASAL (11:38)
[2019-07-06 11:46] LABS: Bedside Glucose 101 mg/dL (70-110)
[2019-07-06] MEDS: Magnesium Hydroxide 30 ML UDC PO (14:59)
--- NOTE | 2019-07-06 16:08 | CASEMGMT ---
Social Work Return call from [facility] in and they are able to accept pt and precert has been obtained. Bed available in after 1300 on 07/07/19. Pt notified and states he will be calling his and will let her know. Nursing made aware of d/c plan. Plan: , 07/07/19 after 1300 CESIA Dumont
[2019-07-06 17:16] LABS: Bedside Glucose 114 mg/dL (70-110)
[2019-07-06] MEDS: Atorvastatin Calcium 80 MG Tablet PO (22:38)
[2019-07-06 22:56] LABS: Bedside Glucose 80 mg/dL (70-110)
[2019-07-07] VITALS (11 sets, daily range): BP systolic 154–163; BP diastolic 67–79; PULSE 50–87; RESP 16–18; TEMP 36.4–36.8; O2SAT 96–100; BMI 39.9
[2019-07-07] MEDS: Labetalol 200 MG Tablet PO ×2 (05:30→14:53)
[2019-07-07] MEDS: hydrALAZINE 50 MG Tablet 100 MG PO ×2 (05:30→14:53)
[2019-07-07 05:33] LABS: International Normalized Ratio 2.3; Prothrombin Time (Protime)PT. 24.9 SECONDS (11.7-14.9)
[2019-07-07 08:11] LABS: Bedside Glucose 176 mg/dL (70-110)
--- NOTE | 2019-07-07 08:12 | DCINST_ITS ---
- Discharge Diagnoses Current Active Problems: Current Active and Chronic Problems CVA (cerebral vascular accident) (Acute) Left-sided weakness (Acute) Chronic kidney disease (Chronic) You will use the following diet at home:: Calorie/Carbohydrate Controlled (specify 1200, 1400, etc) - 1800 Your food should be the consistency of: Regular Discharge Activity: Return to Normal Activity Allergies/Adverse Reactions: Allergies No Known Allergies Allergy (Verified 07/04/19 21:13) Medications to take at Discharge Clonidine HCl [Catapres] 0.3 mg PO DAILY 07/04/19 Clonidine Patch [Catapres-Tts3] 0.3 mg TRANSDERM. Q7D 07/04/19 Hydralazine HCl 100 mg PO TID 07/04/19 Insulin Detemir [Levemir Flextouch] 15 unit SQ BID 07/04/19 Labetalol [Trandate (Beta Gaby)] 200 mg PO TID 07/04/19 Warfarin Sodium [Coumadin] 6 mg PO DAILY 07/04/19 0.9% Saline Lock 10 - 40 ml IV UD PRN syringe 07/07/19 Acetaminophen [Tylenol Tablet] 650 mg PO Q6H PRN PRN tab 07/07/19 Amlodipine [Norvasc] 5 mg PO DAILY #1 tablet 07/07/19 Aspirin [Aspirin, Baby] 81 mg PO DAILY@0800 tab.chew 07/07/19 Atorvastatin Calcium [Lipitor] 80 mg PO QHS tab 07/07/19 Insulin Lispro [Humalog KwikPen] 10 unit SUBCUT BREAKFAST insuln.pen 07/07/19 Insulin Lispro [Humalog KwikPen] 10 unit SUBCUT DINNER insuln.pen 07/07/19 Insulin Lispro [Humalog KwikPen] 10 unit SUBCUT LUNCH insuln.pen 07/07/19 Insulin Lispro [Humalog KwikPen] See Protocol SUBCUT ACHS insuln.pen 07/07/19 Magnesium Hydroxide [Milk Of Magnesia] 30 ml PO BID PRN udc 07/07/19 Sodium Chloride 0.65% [Starke Nasal Champion] 2 spray NASAL TID PRN PRN spray.btl 07/07/19 The following prescriptions were given: Amlodipine [Norvasc] 5 mg PO DAILY #1 tablet Primary Care Physician: NOT,DEFINED [NON-STAFF] - Test Results: Test results from this visit will be discussed in further detail at your follow- up appointment, if applicable. Proposed Discharge Date: 07/07/19
--- NOTE | 2019-07-07 08:13 | DS.PCM_ITS ---
Discharge Date and Diagnosis - Problem List Patient Problems: Active and Suspected Problems CVA (cerebral vascular accident) (Acute) Left-sided weakness (Acute) Date of Admission: 07/04/19 Date of Discharge: 07/07/19 - Primary Discharge Diagnosis Active and Suspected Problems CVA (cerebral vascular accident) (Acute) Left-sided weakness (Acute) - Secondary Discharge Diagnosis Chronic Problems Chronic kidney disease (Chronic) Hospital Course and Treatment Imaging Results: Clinical Impression(s) from Imaging Studies Brain CT 07/04/19 20:55 IMPRESSION: Subcentimeter deep white matter likely old ischemic changes, if there is clinical concern for acute infarct follow-up MRI brain can be performed 2 mm metallic foreign body within the soft tissues anterior to the right maxillary sinus Telephone report was called to and discussed with Physician: Jonathan Bravo immediately after my review at 9:09 PM 07/04/2019 N.B. : The above information has been verbally conveyed by Jonathan Nuñez MD, on 07/04/2019 21:12:02 (ET). Electronically Signed: Nick Jones at 21:15 EDT Tel , Service support , ADDENDUM: 07/04/19 2122 IMPRESSION: Subcentimeter deep white matter likely old ischemic changes, if there is clinical concern for acute infarct follow-up MRI brain can be performed 2 mm metallic foreign body within the soft tissues anterior to the right maxillary sinus Telephone report was called to and discussed with Physician: Jonathan Bravo immediately after my review at 9:09 PM 07/04/2019 N.B. : The above information has been verbally conveyed by Jonathan Nuñez MD, on 07/04/2019 21:12:02 (ET). Electronically Signed: Nick Jones at 21:15 EDT Tel , Service support , ADDENDUM: 07/05/19 0838 Chest X-Ray 07/04/19 20:55 IMPRESSION: Cardiomegaly Mild right basilar pulmonary opacity infiltrate versus subsegmental atelectasis Electronically Signed: Nick Jones at 22:30 EDT Tel , Service support , Brain CT 07/05/19 12:28 IMPRESSION: 1. Hypodense lacunar ischemic infarct in the right posterior internal capsule (series 1002, images 21-22). This is most likely recent. 2. No CT evidence of intracranial bleeding and no other additional findings or changes since 07/04/2019. Electronically Signed: Sae Baker MD at 13:10 EDT , Service support , Summary of Care Provided: Patient is a 63-year-old gentleman with single risk factors including poorly controlled diabetes mellitus type 2 as well as hypertension who presented with left-sided weakness CT was negative for acute CVA an MRI could not be obtained in view of patient having a metal in the skull 1. Acute ischemic CVA with left-sided weakness ?Patient has been admitted to monitored bed where she is currently being managed per protocol. Patient was seen in consultation by neurology note and recommenda tijose reviewed -07/06/2019: Repeat head CT demonstrated Hypodense lacunar ischemic infarct in the right posterior internal capsule currently undergoing therapy with plans for patient to be transferred to the inpatient rehab unit on 07/07/2019 ?07/07/2019; patient was deemed stable for discharge 2. Hypertension ~ blood pressure controlled, home medications except for HCTZ continued with dose adjustment as needed ?07/07/2019: Blood pressure fairly controlled HCT discontinued on discharge added amlodipine 5 mg daily 3. Dyslipidemia ~patient is on statin therapy, continued at home dose 4. Diabetes mellitus type II ~C controlled with a hemoglobin A1c of 9 ;patient's oral hypoglycemics held. Placed on long acting insulin, Accu-Cheks a.c. and at bedtime and covered with sliding scale insulin 5. History of previous DVT/PE ?Status post IVC filter as well as use of Coumadin INR was however subtherapeutic on admission ?INR was therapeutic at the time of discharge 6. Obesity with BMI of 40 ?Weight loss advised 7. DVT prophylaxis patient already on Coumadin no additional measures required 8. Chronic kidney disease stage IV secondary to diabetic nephropathy ?Plan is for patient to follow-up with nephrology following his discharge. Patient is on HCTZ this was discontinued ?Kidney function improved during patient hospital stay 9. Obstructive sleep apnea ?Patient apparently unable to tolerate CPAP Patient Problems: Active and Suspected Problems CVA (cerebral vascular accident) (Acute) Left-sided weakness (Acute) Objective: GENERAL: cooperative HEENT: Atraumatic; EYES; Anicteric, Normal Conjunctiva NECK; supple, normal thyroid, RESPIRATORY: Diminished to auscultation CARDIOVASCULAR: Regular S1 S2, GI: soft, normoactive bowel sounds, : No Renal angle tenderness; EXTREMITIES: No edema, no clubbing, MUSCULOSKELETAL: no muscle waisting NEURO: Awake; left sided weakness (3/5 in 4/5 in the leg) SKIN: No Rash PSYCH; Flat affect - Physical Exam Vitals/I&O's: Vital Signs Temp Pulse Resp BP Pulse Ox 97.5 F L 61 16 158/74 H 96 07/07/19 05:15 07/07/19 05:30 07/07/19 05:15 07/07/19 05:30 07/07/19 07:18 Oxygen Delivery Method Room Air Weight: 112.3 kg Body Mass Index (BMI) 39.9 Finger Stick Blood Glucose 370 Intake and Output for Last 24 Hours 07/05/19 07/06/19 07/07/19 23:59 23:59 23:59 Intake Total 2735 / 2735 2300 / 2300 480 / 480 Output Total 2300 / 2300 2725 / 2725 675 / 675 Balance 435 / 435 -425 / -425 -195 / -195 Laboratory Results 07/06/19 11:34: POC Glucose 101 07/06/19 16:52: POC Glucose 114 H 07/06/19 22:34: POC Glucose 80 07/07/19 04:54: PT 24.9 H, INR 2.3 07/07/19 08:07: POC Glucose 176 H Current Medications Acetaminophen (Tylenol) 650 mg PO Q6H PRN PRN PRN Reason: Pain Score 1-10/Temp > 100.7 F Aspirin (Aspirin, Baby) 81 mg PO DAILY@0800 [facility] Last Admin: 07/06/19 08:25 Dose: 81 mg Documented by: Atorvastatin Calcium (Lipitor) 80 mg PO QHS [facility] Last Admin: 07/06/19 22:38 Dose: 80 mg Documented by: Clonidine (Catapres) 0.3 mg PO DAILY [facility] Last Admin: 07/06/19 08:25 Dose: 0.3 mg Documented by: Clonidine HCl (Catapres-Tts3) 0.3 mg TRANSDERM. Q7D BUD Dextrose (D50w Syringe) 0 gm IV X1 PRN; Protocol PRN Reason: Hypoglycemia Fluticasone Propionate (Flonase Nasal [place]) 2 spray NASAL DAILY PRN PRN Reason: SINUS CONGESTION Last Admin: 07/06/19 11:38 Dose: 2 spray Documented by: Glucagon () 1 mg IM .X1 PRN PRN Reason: Hypoglycemia Hydralazine HCl (Apresoline) 100 mg PO TID [facility] Last Admin: 07/07/19 05:30 Dose: 100 mg Documented by: Hydralazine HCl (Apresoline Iv) 5 mg IV Q4H PRN PRN PRN Reason: sbp > 180 Sodium Chloride () 250 mls @ 15 mls/hr IV .[id number] PRN PRN Reason: Saline Flush Sodium Chloride () 250 mls @ 15 mls/hr IV .[id number] PRN PRN Reason: Additional IVPB Infusion Insulin Glargine (Lantus (Bkc)) 15 units SC BID [facility] Last Admin: 07/06/19 22:36 Dose: Not Given Documented by: Insulin Human Lispro (Humalog Kwikpen (Bkc)) 10 unit SC BREAKFAST [facility] Last Admin: 07/06/19 08:33 Dose: 10 units Documented by: Insulin Human Lispro (Humalog Kwikpen (Bkc)) 10 unit SC DINNER [facility] Last Admin: 07/06/19 16:58 Dose: 10 units Documented by: Insulin Human Lispro (Humalog Kwikpen (Bkc)) 10 unit SC LUNCH [facility] Last Admin: 07/06/19 11:51 Dose: 10 units Documented by: Insulin Human Lispro (Humalog Kwikpen (Bkc)) 0 unit SC ACHS [facility]; Protocol Last Admin: 07/06/19 22:35 Dose: Not Given Documented by: Labetalol HCl (Trandate) 200 mg PO TID [facility] Last Admin: 07/07/19 05:30 Dose: 200 mg Documented by: Magnesium Hydroxide (Milk Of Magnesia) 30 ml PO BID PRN PRN Reason: Constipation Last Admin: 07/06/19 14:59 Dose: 30 ml Documented by: Sodium Chloride () 10 - 40 ml IV UD PRN PRN Reason: SALINE FLUSH Sodium Chloride ([place] Nasal [place]) 2 spray NASAL TID PRN PRN PRN Reason: NASAL DRYNESS Last Admin: 07/06/19 14:52 Dose: 2 spray Documented by: Warfarin Sodium (Coumadin (Pbkc)) 8 mg PO DAILY@1700 BUD Last Admin: 07/06/19 16:58 Dose: 8 mg Documented by: Discharge Diet: 1800 Calorie Control Diet Discharge Activity: Return to Normal Activity Home Medications: Medications to take at Discharge Clonidine HCl [Catapres] 0.3 mg PO DAILY 07/04/19 Clonidine Patch [Catapres-Tts3] 0.3 mg TRANSDERM. Q7D 07/04/19 Hydralazine HCl 100 mg PO TID 07/04/19 Insulin Detemir [Levemir Flextouch] 15 unit SQ BID 07/04/19 Labetalol [Trandate (Beta Gaby)] 200 mg PO TID 07/04/19 Warfarin Sodium [Coumadin] 6 mg PO DAILY 07/04/19 0.9% Saline Lock 10 - 40 ml IV UD PRN syringe 07/07/19 Acetaminophen [Tylenol Tablet] 650 mg PO Q6H PRN PRN tab 07/07/19 Amlodipine [Norvasc] 5 mg PO DAILY #1 tab 07/07/19 Aspirin [Aspirin, Baby] 81 mg PO DAILY@0800 tab.chew 07/07/19 Atorvastatin Calcium [Lipitor] 80 mg PO QHS tab 07/07/19 Insulin Lispro [Humalog KwikPen] 10 unit SUBCUT BREAKFAST insuln.pen 07/07/19 Insulin Lispro [Humalog KwikPen] 10 unit SUBCUT DINNER insuln.pen 07/07/19 Insulin Lispro [Humalog KwikPen] 10 unit SUBCUT LUNCH insuln.pen 07/07/19 Insulin Lispro [Humalog KwikPen] See Protocol SUBCUT ACHS insuln.pen 07/07/19 Magnesium Hydroxide [Milk Of Magnesia] 30 ml PO BID PRN udc 07/07/19 Sodium Chloride 0.65% [[place]und[place] Nasal [place]] 2 spray NASAL TID PRN PRN spray.btl 07/07/19 Following Prescrptions Were Given to Patient: Amlodipine [Norvasc] 5 mg PO DAILY #1 tab Primary Care Physician: NOT,DEFINED [NON-STAFF] - Disposition: Inpt Rehab Unit/Facility Minutes spent on discharge:: 45 Patient Condition:: Stable Medical Necessity - Tobacco Use Smoking Status: Former smoker Tobacco Use: Cigarettes Meaningful Use Info Meaningful Use Diagnoses (Choose all that apply): Ischemic CVA - CVA Therapy Assessed for PT,OT and/or ST?: Yes - Ischemic Stroke Antithrombotic order at d/c?: Yes Dx of Atrial fib/flutter?: Yes Anticoagulant at discharge?: Yes Statins at discharge?: Yes Primary Dx Acute Ischemic CVA?: Yes IV tPA ordered during stay?: No Reason IV t-PA not ordered: Medical Contraindication Inpatient E&M: [id number] [facility]
[2019-07-07] MEDS: cloNIDine HCl 0.1 MG Tablet 0.3 MG PO (08:58)
[2019-07-07] MEDS: Aspirin 81 MG TAB.CHEW PO (08:59)
[2019-07-07] MEDS: Insulin Lispro 100 UNIT/ML INSULN.PEN SC ×2 (09:00→12:16)
[2019-07-07] MEDS: Insulin Lispro 100 UNIT/ML INSULN.PEN 10 UNIT SC ×2 (09:00→12:16)
[2019-07-07 12:26] LABS: Bedside Glucose 210 mg/dL (70-110)
== END 2019-07-07 15:32 | DRG 65 ==
LOC: ED 22:25 → PCU 22:40
PROVIDERS: Nurse Practitioner Family; Admitting Provider Hospitalist; Emergency Provider Emergency Medicine; PCP Physician Assistant Medical; Referring Provider Hospitalist; Visit Provider Internal Medicine
DX: I63.9 Cerebral infarction, unspecified (principal); N18.4 Chronic kidney disease, stage 4 (severe); Z68.41 Body mass index [BMI] 40.0-44.9, adult; I48.92 Unspecified atrial flutter; R27.0 Ataxia, unspecified; E66.01 Morbid (severe) obesity due to excess calories; R53.1 Weakness; E11.22 Type 2 diabetes mellitus with diabetic chronic kidney disease; E78.5 Hyperlipidemia, unspecified; I48.91 Unspecified atrial fibrillation; I12.9 Hypertensive chronic kidney disease with stage 1 through stage 4 chronic kidney disease, or unspecified chronic kidney disease; G47.33 Obstructive sleep apnea (adult) (pediatric); Z79.01 Long term (current) use of anticoagulants; Z79.4 Long term (current) use of insulin; Z79.82 Long term (current) use of aspirin; Z79.899 Other long term (current) drug therapy; Z82.3 Family history of stroke; Z83.3 Family history of diabetes mellitus; Z86.711 Personal history of pulmonary embolism; Z86.718 Personal history of other venous thrombosis and embolism; Z95.828 Presence of other vascular implants and grafts
CPT/HCPCS: 36415; 70450; 71045; 80048; 80061; 82962; 83036; 84484; 85025; 85610; 85730; 93005; 93306; 93880; 94762; 97110; 97116; 97162; 97167; 97530; 97535; 97803; 99285; J7030; A4216

== ENCOUNTER 2019-07-07 15:35 | Inpatient (IN) | payer BC, SELFPAY ==
[2019-07-07 12:00] VITALS: BMI 39.9
[2019-07-07 16:06] VITALS: BP 158/64; PULSE 63; RESP 18; TEMP 36.3; O2SAT 99; BMI 39.9; BMI 40.0
[2019-07-07] MEDS: Insulin Lispro 100 UNIT/ML INSULN.PEN 10 UNIT SC (17:37)
[2019-07-07 17:40] LABS: Bedside Glucose 137 mg/dL (70-110)
[2019-07-07 18:48] VITALS: RESP 16; O2SAT 98
[2019-07-07 19:30] VITALS: BP 136/72; PULSE 72; RESP 18; TEMP 36.8; O2SAT 99
[2019-07-07 21:52] VITALS: PULSE 60
[2019-07-07] MEDS: Atorvastatin Calcium 80 MG Tablet PO (21:52)
[2019-07-07] MEDS: Labetalol 200 MG Tablet PO (21:52)
[2019-07-07] MEDS: hydrALAZINE 50 MG Tablet 100 MG PO (21:52)
[2019-07-07] MEDS: Senna/Docusate Sodium 1 Tablet 2 TABLET PO (21:52)
[2019-07-07 22:25] LABS: Bedside Glucose 136 mg/dL (70-110)
[2019-07-08] VITALS (7 sets, daily range): BP systolic 122–175; BP diastolic 68–81; PULSE 60–66; RESP 16–20; TEMP 36.4–36.7; O2SAT 96–99; BMI 39.9
[2019-07-08] MEDS: hydrALAZINE 50 MG Tablet 100 MG PO ×3 (05:58→21:35)
[2019-07-08] MEDS: Labetalol 200 MG Tablet PO ×3 (05:58→21:35)
[2019-07-08 06:56] LABS: Bedside Glucose 151 mg/dL (70-110)
[2019-07-08] MEDS: amLODIPine 10 MG Tablet PO (07:32)
[2019-07-08] MEDS: Aspirin 81 MG TAB.CHEW PO (07:32)
[2019-07-08] MEDS: Insulin Lispro 100 UNIT/ML INSULN.PEN 10 UNIT SC ×3 (07:33→17:15)
[2019-07-08 11:30] LABS: Bedside Glucose 184 mg/dL (70-110)
[2019-07-08] MEDS: Insulin Lispro 100 UNIT/ML INSULN.PEN SC (11:47)
[2019-07-08 16:55] LABS: Bedside Glucose 138 mg/dL (70-110)
[2019-07-08] MEDS: 0.9% Saline Lock 10 ML Syringe IV (18:43)
[2019-07-08] MEDS: Ipratropium Bromide 0.06% NASAL SPRAY 2 SPRAY NASAL (21:33)
[2019-07-08] MEDS: Senna/Docusate Sodium 1 Tablet 2 TABLET PO (21:35)
[2019-07-08] MEDS: Atorvastatin Calcium 80 MG Tablet PO (21:36)
[2019-07-08 21:55] LABS: Bedside Glucose 128 mg/dL (70-110)
[2019-07-09] MEDS: Acetaminophen 325 MG Tablet 650 MG PO ×3 (03:36→22:16)
[2019-07-09 06:22] LABS: Hematocrit 37.8 % (40-54); Hemoglobin 12.1 g/dL (13.0-16.5); Mean Corpuscular Hgb 30.1 pg (27.0-32.0); Mean Platelet Vol. 11.2 fl (6.2-12.0); Platelet Count 205 K/mm3 (150-450); RBC Distribution Width CV 13.8 % (11.6-14.6); RBC Distribution Width SD 47.8 fl (35.1-43.9); Red Blood Count 4.02 M/mm3 (4.6-6.2)
[2019-07-09 06:36] LABS: Bedside Glucose 137 mg/dL (70-110)
[2019-07-09 06:38] VITALS: PULSE 64
[2019-07-09] MEDS: Ipratropium Bromide 0.06% NASAL SPRAY 2 SPRAY NASAL ×3 (06:38→21:23)
[2019-07-09] MEDS: hydrALAZINE 50 MG Tablet 100 MG PO ×3 (06:38→21:21)
[2019-07-09] MEDS: Labetalol 200 MG Tablet PO ×3 (06:38→21:20)
[2019-07-09 06:42] LABS: ALB/GLOB Ratio 0.6 RATIO (0.9-2.4); AST(SGOT) 31 U/L (15-37); Alanine Aminotransfer ALT/SGPT 30 U/L (16-61); Albumin, Serum 2.6 g/dL (3.2-5.0); Alkaline Phosphatase 102 U/L (45-117); Anion Gap 5 (5-15); BUN 57 mg/dL (7-18); BUN/Creat Ratio 20.4 RATIO (10-20); Calcium,Total 8.6 mg/dL (8.5-10.1); Chloride 105 mmol/L (98-107); Creatinine, Serum 2.79 mg/dL (0.70-1.30); EST Glomerular Filtration Rate 25 mL/min (>60); Est Glom Filt Rate - Afr Amer 30 mL/min (>60); Estimated Creatinine Clearance 24.46 ml/min; Glucose 143 mg/dL (74-106); Magnesium 2.2 mg/dL (1.6-2.6); Phosphorus 3.7 mg/dL (2.5-4.9); Potassium 3.3 mmol/L (3.5-5.1); Protein, Total 6.6 g/dL (6.4-8.2); Sodium Level 138 mmol/L (136-145)
[2019-07-09 06:46] LABS: International Normalized Ratio 2.8; Prothrombin Time (Protime)PT. 28.7 SECONDS (11.7-14.9)
[2019-07-09] MEDS: Insulin Lispro 100 UNIT/ML INSULN.PEN 10 UNIT SC ×3 (08:34→17:14)
[2019-07-09] MEDS: amLODIPine 10 MG Tablet PO (08:35)
[2019-07-09] MEDS: Aspirin 81 MG TAB.CHEW PO (08:35)
[2019-07-09] MEDS: Senna/Docusate Sodium 1 Tablet 2 TABLET PO ×2 (08:35→21:20)
[2019-07-09] MEDS: Menthol/Lanolin/Calamine/Znox 113 GM Tube 1 APPLIC TOPICAL ×2 (08:44→21:19)
[2019-07-09 08:46] VITALS: BP 160/92; PULSE 66; RESP 18; TEMP 36.8; O2SAT 97
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
[2019-07-09] MEDS: Fluticasone 0.05% 1 SPRAY NASAL.SRY NASAL ×2 (11:30→21:14)
[2019-07-09] MEDS: Insulin Lispro 100 UNIT/ML INSULN.PEN SC ×2 (11:51→17:14)
[2019-07-09 12:15] LABS: Bedside Glucose 183 mg/dL (70-110)
--- NOTE | 2019-07-09 14:36 | CASEMGMT ---
Social Work PHQ-9 completed. Score 08/31. No issues noted. Stroke support group information provided. Will continue to follow. Martha Núñez MSW [employer]
[2019-07-09 14:48] VITALS: PULSE 80
[2019-07-09 16:25] VITALS: BMI 39.9
[2019-07-09 16:45] LABS: Bedside Glucose 189 mg/dL (70-110)
--- NOTE | 2019-07-09 18:04 | REHABEVAL_ITS ---
Admission Information Primary Diagnosis:: Debility secondary to acute ischemic lacunar infarct in the right internal capsule with left side weakness. Status Changes from Prescreening?: No changes Identified Actual Problem List:: Skin Intergrity, Mobility Impaired, Self Care Deficit, Diabetes, Hyperglycemia, BP, Hypertension, Alteration-Leisure Activ. Potential Problem List:: DVT, Bleeding, Infection, UTI, Aspiration, Falls, Skin Integrity, Depression Risk of Complications DVT: LMWH, RJ Hose, Sequential Compression Device Bleeding: Monitor Lab Values, Nursing to Teach Precautions for anti-coagulation therapy., Wound, if applicable, to be assessed every shift., Stroke patients assessed for lethargy or change in status. Infection: Clinical Staff to Monitor for S/S of infection:, S/S of infection include fever, redness, warmth, etc. Urinary Tract Infection: Monitor for frequency, burning, discomfort, or incontinence., Nursing will obtain urine sample for urinalysis and C&S when ordered. Aspiration: Clinical staff will monitor for coughing, drooling, congestion., Speech will evaluate swallowing and dsyphasia., Nursing will monitor patient swallowing during meals. Falls: Patient will be evaluated for Fall Precautions, Patient will be placed on Fall Precautions as indicated per protocol. Skin Breakdown: Nursing will assess skin daily using assessment tool., Nursing will place on Skin Breakdown Precautions as indicated. Pain: Clinical staff will assess patient's pain level per protocol., Medications will be given, if needed, and the pain level reassessed., Other methods: Massage, distraction, decrease stimulus, etc. used PRN. Plan of Care Patient requires physician specializing in physical medicine and rehab oversight to provide close medical supervision of rehab issues including: Pain Management, Sleep Problems, Bowel and Bladder, Medical and co-morbidity Management, DVT prophylaxis, Rehabilitation Leadership, Coordination of treatment team Patient needs Physical Therapy: For a minimum of 1 hour, At least 5 out of 7 days Patient needs Physical Therapy to improve:: Mobility, Mobility, Mobility, Strengthening, Transfers, Stretching, ROM, Endurance, Stairs, Gait, Balance Patient needs Occupational Therapy: For a minimum of 1 hour, At least 5 out of 7 days Patient needs Occupational Therapy to improve ADL's incl.: Eating, Grooming, Bathing, Dressing, Toileting, Toilet transfers, Community Reintegration, Higher functioning activities, Household tasks, Adaptive Equipment, Splinting, Other activities as determined Patient requires speech therapy: For a minimum of 1 hour, At least 5 out of 7 days Patient requires speech therapy for: Swallowing, Cognition, Language Skills, Compensatory Strategies Patient requires 24/ Rehabilitation Nursing for: Pain Issues, Identifying and preventing risk factors, Monitoring and reporting current medical conditions, Assisting with ambulation, transfer, and all ADL's, Teaching patients about disease process and medications, Family teaching, Providing safe environment, Bowel and Bladder Issues, Skin integrity, Medication Management Patient needs Coppersmith Helper/ Case Management for: Discharge Planning, Arranging Home Equipment or Services, Family Interventions Patient needs Dietary and Nutrition Services for: Adequate Nutrition, Nutritional Supplements, Nutritional Education Goals Patient will remain: free from falls, or injury at time of discharge. Patient will perform bed mobility at: MOD I level of assist. Patient will complete transfers from bed to chair at: MOD I level of assist. Patient will ambulate: 100 feet, with MOD I assist, with LRD Patient will complete upper body dressing at: MOD I level of assist. Patient will complete lower body dressing at: MOD I level of assist. Patient will complete toileting at: MOD I level of assist. Patient will perform bathing at: MOD I level of assist. Patient will complete grooming at: MOD I level of assist. Patient will complete home management skills at: MOD I level of assist. Patient will achieve: 12 stairs, at MOD I assist Patient will have pain level of: of 3 or less Patient's skin will: remain intact, free from infection. Patient will receive: adequate nutrition. Discharge Planning Pt Prognosis for Sig. Practical Improv. w/in Reasonable Time: Good Estimated Length of stay (days): 14 Anticipated D/C Destination: Home with Outpt Therapy
[2019-07-09 20:31] LABS: Bedside Glucose 143 mg/dL (70-110)
[2019-07-09 20:59] VITALS: BP 132/84; PULSE 74; RESP 16; TEMP 36.6; O2SAT 98
[2019-07-09 21:00] VITALS: BMI 39.9
[2019-07-09] MEDS: Atorvastatin Calcium 80 MG Tablet PO (21:20)
[2019-07-09 21:21] VITALS: PULSE 74
[2019-07-09 21:25] VITALS: O2SAT 98
[2019-07-10] VITALS (7 sets, daily range): BP systolic 168–174; BP diastolic 79–89; PULSE 76–86; RESP 17–18; TEMP 36.6–37; O2SAT 2–97; BMI 39.9
[2019-07-10] MEDS: Acetaminophen 325 MG Tablet 650 MG PO ×2 (04:38→21:48)
[2019-07-10] MEDS: 0.9% Saline Lock 10 ML Syringe IV (04:45)
[2019-07-10] MEDS: Ipratropium Bromide 0.06% NASAL SPRAY 2 SPRAY NASAL ×3 (04:58→21:53)
[2019-07-10] MEDS: Labetalol 200 MG Tablet PO ×3 (04:58→21:49)
[2019-07-10] MEDS: hydrALAZINE 50 MG Tablet 100 MG PO ×3 (04:58→21:52)
[2019-07-10 06:51] LABS: Bedside Glucose 122 mg/dL (70-110)
[2019-07-10] MEDS: amLODIPine 10 MG Tablet PO (08:02)
[2019-07-10] MEDS: Aspirin 81 MG TAB.CHEW PO (08:02)
[2019-07-10] MEDS: Insulin Lispro 100 UNIT/ML INSULN.PEN 10 UNIT SC ×3 (08:02→17:16)
[2019-07-10] MEDS: Senna/Docusate Sodium 1 Tablet 2 TABLET PO ×2 (08:02→21:49)
[2019-07-10] MEDS: Fluticasone 0.05% 1 SPRAY NASAL.SRY NASAL ×2 (08:03→20:11)
[2019-07-10] MEDS: Menthol/Lanolin/Calamine/Znox 113 GM Tube 1 APPLIC TOPICAL ×2 (08:12→21:51)
[2019-07-10] MEDS: predniSONE 20 MG Tablet PO (08:26)
[2019-07-10] MEDS: Ketorolac 10 MG Tablet PO (08:26)
--- NOTE | 2019-07-10 09:23 | PN_ITS ---
Progress Note Afebrile VSS-not adequately controlled. Blood pressure this morning is 168/89. Heart rate is within normal limits Maintaining appropriate oxygen saturation on RA Oral intake is good Discussed with nursing - no problems that need addressed Reviewed the PT/OT/ST notes Medication list reviewed. Antihypertensives include a Catapres TTS 3 patch, labetalol 200 mg 3 times daily, hydralazine 100 mg p.o. 3 times daily and amlodipine 10 mg daily. He is not on a diuretic. Blood sugar record was reviewed. Blood sugar is well controlled on Lantus 15 units twice daily and 10 units of Humalog with each meal. He is not on a protein restricted diet. He is c/o severe R ankle pain today and he feels he has gout....he has had occasionally in the past. He can not tell me what medication he took in the medicine that helped but, he implores me to start that medication? He has been on Allopurinol in the past but, he stopped the medication and has not been taking as an OP recently. Alert Lungs - CTA H - RRR The R ankle has edema but, less than the left ankle. There is no redness and no increased warmth to touch. He does not recall turning it or injuring it yesterday. Impressions 1. R ankle pain - possible gout but exam is not really consistent with gout at this time. Could be OA? Could be stress fracture? Will get an XRAY of the right ankle. Give a 1 time dose of Toradol 10 mg PO. Prednisone 20 mg daily for 3 days. Get R ankle Xray. check a UA level. Add a purine restriction to the current diet 2. DM II - not adequately controlled - HGBA1C is 9% on 07/05/19 Goal is less than 7 3. Hypertension-not adequately controlled. The goal for blood pressure is less than 130/80. DC the Amlodipine and start Procardia XL 30 mg daily.....continue to monitor BP and increase the Procardia XL as needed to achieve a BP less than 130/80. 4. Stage IV chronic renal failure - It Applications Analyst recommends 85-95 GM of protein daily but, he has stage 4 CRF due to uncontrolled DM/diabetic neuropathy and HTN and I think we should be restricting protein to delay need for dialysis? Will discuss with the liquor clerk. 5. debility due to ischemic CVA in the R internal capsule Continue therapy. Inpatient E&M: 40288 Subs Hosp L2
--- NOTE | 2019-07-10 09:43 | RAD_ITS ---
STUDY: X-RAY - RIGHT ANKLE REASON FOR EXAM: Male, 63 years old. PAIN AND SWELLING TECHNIQUE: 3 view(s) of the ankle. COMPARISON: None. FINDINGS: Normal visualized distal tibia and fibula. Normal medial and lateral malleoli. Normal tibiotalar articulation and ankle mortise. There is evidence of a talar neck beak. Small plantar spur. The visualized subtalar, talonavicular, calcaneocuboid and tarsal articulations are normal. There are atherosclerotic calcifications. Soft tissue swelling. RAD/Ankle min 3 Views IMPRESSION: Soft tissue swelling. Talar neck beak. Electronically Signed: Robert Apodaca, at 10:28 EDT , Service support ,
[2019-07-10 11:41] LABS: Bedside Glucose 141 mg/dL (70-110)
[2019-07-10 12:23] LABS: Color, Urine Yellow (Yellow); Glucose, Dipstick 50 mg/dl (Normal); Ketone-Dipstick Negative (Negative); Leukocyte Esterase-Dipstick Negative /ul (Negative); Nitrite-Dipstick Negative (Negative); Occult Blood-Urine 10 /ul (Negative); Protein-Dipstick 500 mg/dl (Negative); Specific Gravity, Urine 1.015 (1.002-1.030); Urine Bilirubin Dipstick Negative (Negative); Urine Clarity Clear (Clear); Urine Urobilinogen Normal (Normal)
[2019-07-10 12:29] LABS: Red Blood Cells-Urine 0-5 SEEN /hpf (0-5); Squamous Epithelial Cells - UA 0-5 SEEN /hpf (0-5); White Blood Cells 0 SEEN /hpf (0-5)
[2019-07-10 12:30] LABS: Bacteria RARE /hpf (None Seen); Mucous, Urine RARE /hpf (<or=2+)
--- NOTE | 2019-07-10 14:09 | NURSING ---
Saline lock removed from patient's left hand. Denies pain to area, no bleeding. Site free of redness.
[2019-07-10 16:40] LABS: Bedside Glucose 209 mg/dL (70-110)
[2019-07-10] MEDS: Insulin Lispro 100 UNIT/ML INSULN.PEN SC ×2 (17:17→21:50)
[2019-07-10] MEDS: Magnesium Hydroxide 30 ML UDC PO (18:28)
[2019-07-10] MEDS: Atorvastatin Calcium 80 MG Tablet PO (21:49)
[2019-07-10 22:05] LABS: Bedside Glucose 207 mg/dL (70-110)
[2019-07-11] VITALS (7 sets, daily range): BP systolic 149–174; BP diastolic 71–89; PULSE 76–89; RESP 17–18; TEMP 36.6–36.7; O2SAT 96–98; BMI 39.9
[2019-07-11] MEDS: hydrALAZINE 50 MG Tablet 100 MG PO ×3 (05:51→23:03)
[2019-07-11] MEDS: Labetalol 200 MG Tablet PO ×3 (05:51→23:06)
[2019-07-11] MEDS: Ipratropium Bromide 0.06% NASAL SPRAY 2 SPRAY NASAL ×3 (05:51→23:03)
[2019-07-11 06:56] LABS: Bedside Glucose 138 mg/dL (70-110)
[2019-07-11] MEDS: amLODIPine 10 MG Tablet PO (08:22)
[2019-07-11] MEDS: predniSONE 20 MG Tablet PO (08:22)
[2019-07-11] MEDS: Fluticasone 0.05% 1 SPRAY NASAL.SRY NASAL ×2 (08:23→19:56)
[2019-07-11] MEDS: Senna/Docusate Sodium 1 Tablet 2 TABLET PO ×2 (08:23→23:06)
[2019-07-11] MEDS: Aspirin 81 MG TAB.CHEW PO (08:24)
[2019-07-11] MEDS: Insulin Lispro 100 UNIT/ML INSULN.PEN 10 UNIT SC ×3 (08:25→16:52)
[2019-07-11] MEDS: Menthol/Lanolin/Calamine/Znox 113 GM Tube 1 APPLIC TOPICAL ×2 (08:28→23:04)
--- NOTE | 2019-07-11 08:33 | PN_ITS ---
Progress Note Afebrile BP is elevated - Amlodipine was discontinued yesterday after the morning dose and today he is to start Procardia XL. Maintaining appropriate O2 sat on RA good oral intake Uric acid is 10 BS's at 4 PM and HS were mildly elevated......likely due to addition of Prednisone 20 mg daily for 3 days to the drug regimen to tx acute gouty art hritis of the right ankle. No change in the meds at this time. Will continue to monitor. Pain in the right ankle is much better today. No erythema, No significant increase in the warmth to touch. Some swelling but, mild Impressions 1. acute gouty arthritis of the right ankle - continue the prednisone. 2. Hyperuricemia - low purine restriction added to the diet. Will need to start Allopurinol and he will need to stay on this medication because the hyperuricemia is likely related to the progressive renal failure. Monitor INR closely with the addition of Allopurinol to the drug regimen......Allopurinol inhibits the metabolism of Warfarin and may need to decrease the dose going forward. 3. stage 4 renal failure due to uncontrolled HTN and DM - needs to follow up with nephrology going forward. Not on and SHREE or an ARB. Potassium is not an issue so will add Lisinopril 5 mg daily and continue to monitor BP and also potassium and creatinine 4. HTN - starting Procardia XL today. Adjust the dose as needed to keep the BP less than 130/80. 5. 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 CHRISTIAN - overnight trending pulse ox shows about 2 minutes total of desaturation less than 90%. I would still recommend a sleep study and follow up with pulmonary medicine because of the hx of CHRISTIAN and CPAP in the past. I suspect he has improved with the 50 lb weight loss. Continue therapy Arrange a sleep study at [place] continue education to improve understanding of his many disease processes and how we can best manage them and how important it is to control BP and DM if we are going to try and preserve kidney function as long as possible Encouraged to increase his water intake STROKE Vital Signs/Narrative: Vital Signs Temp Pulse Resp BP Pulse Ox 07/11/19 08:31 97.9 F 89 17 174/89 H 96 07/11/19 05:51 89 Inpatient E&M: [id number] Subs Hosp L1
[2019-07-11] MEDS: NIFEdipine 30 MG Tablet PO (09:22)
[2019-07-11] MEDS: Lisinopril 5 MG Tablet PO (09:22)
[2019-07-11] MEDS: Allopurinol 100 MG Tablet 200 MG PO (09:22)
[2019-07-11 11:36] LABS: Bedside Glucose 136 mg/dL (70-110)
[2019-07-11 16:41] LABS: Bedside Glucose 192 mg/dL (70-110)
[2019-07-11] MEDS: Insulin Lispro 100 UNIT/ML INSULN.PEN SC ×2 (16:53→23:05)
[2019-07-11 20:56] LABS: Bedside Glucose 294 mg/dL (70-110)
[2019-07-11] MEDS: Atorvastatin Calcium 80 MG Tablet PO (23:06)
[2019-07-12 04:54] VITALS: BP 156/80; PULSE 80
[2019-07-12] MEDS: hydrALAZINE 50 MG Tablet 100 MG PO ×3 (04:54→21:57)
[2019-07-12] MEDS: Ipratropium Bromide 0.06% NASAL SPRAY 2 SPRAY NASAL ×3 (04:55→21:57)
[2019-07-12] MEDS: Labetalol 200 MG Tablet PO ×2 (04:57→09:53)
[2019-07-12] MEDS: Acetaminophen 325 MG Tablet 650 MG PO ×2 (06:20→22:06)
[2019-07-12 06:41] LABS: Bedside Glucose 117 mg/dL (70-110)
[2019-07-12 07:29] LABS: International Normalized Ratio 2.5; Prothrombin Time (Protime)PT. 26.6 SECONDS (11.7-14.9)
[2019-07-12 07:42] LABS: Anion Gap 9 (5-15); BUN 64 mg/dL (7-18); Calcium,Total 8.5 mg/dL (8.5-10.1); Chloride 108 mmol/L (98-107); Creatinine, Serum 2.78 mg/dL (0.70-1.30); EST Glomerular Filtration Rate 25 mL/min (>60); Est Glom Filt Rate - Afr Amer 30 mL/min (>60); Estimated Creatinine Clearance 24.54 ml/min; Glucose 119 mg/dL (74-106); Potassium 3.5 mmol/L (3.5-5.1); Sodium Level 141 mmol/L (136-145)
[2019-07-12] MEDS: predniSONE 20 MG Tablet PO (08:21)
[2019-07-12] MEDS: Aspirin 81 MG TAB.CHEW PO (08:21)
[2019-07-12] MEDS: Senna/Docusate Sodium 1 Tablet 2 TABLET PO ×2 (08:21→22:00)
[2019-07-12] MEDS: Lisinopril 5 MG Tablet PO (08:21)
[2019-07-12] MEDS: Allopurinol 100 MG Tablet 200 MG PO (08:21)
[2019-07-12] MEDS: NIFEdipine 30 MG Tablet PO (08:21)
[2019-07-12] MEDS: Insulin Lispro 100 UNIT/ML INSULN.PEN 10 UNIT SC ×2 (08:22→11:43)
[2019-07-12] MEDS: Fluticasone 0.05% 1 SPRAY NASAL.SRY NASAL ×2 (08:23→19:38)
--- NOTE | 2019-07-12 08:26 | PCM.PN.BLA ---
Progress Note Nathanael was seen on TEAM rounds today. No family was available to participate by phone Afebrile Heart rate is within normal limits. Blood pressures remains mildly elevated. The blood pressure on 07/11/2019 ranged from 149/81-170 4/89. Blood pressure this a.m. is 156/80. He is maintaining appropriate oxygen saturation on room air. Good oral intake. PT/OT/ST notes reviewed. Patient was able to ambulate 95 feet with a wheeled walker today with minimal assist. Has not done steps yet. Blood sugar record was reviewed. H as blood sugar is still too high and last night was 294. The fasting this morning was 117. All other blood sugars on 07/11/2019 were less than 200. All lab was personally reviewed. INR is stable at 2.5. Potassium is 3.5 today and the BUN is 64 with a creatinine of 2.78 which is stable. He denies CP, SOB, N/V/abd pain, cough, lightheadedness, vertigo, trouble swallowing. The pain in the Right ankle is gone. He associates the gout with admission to the hospital but, I explained the gout is more than likely due to CRF. 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 Still requiring maximum assistance with upper body dressing, bathing and lower body dressing. Moderate assist with toileting. alert, very talkative, pleasant Lungs - CTA H - RRR, no gallop and no rub abd - obese, soft, NT, ND no peripheral edema He is getting more movement in the LUE and can now make a fist and move his shoulder to get his arm up onto the bedside table. Impressions 1. Acute gouty arthritis-much improved with prednisone 20 mg daily for 3 days. 2. Hyperuricemia-on a low purine diet now and has been started on allopurinol 3. Debility secondary to recent ischemic CVA in the right posterior internal capsule 4. Stage IV chronic renal failure-stable 5. Hypertension-not adequately controlled. Labetalol was increased to 400 mg 3 times daily. Blood pressure this afternoon was 113/55 with a heart rate of 90. We will continue TTS 3 patch, hydralazine 100 mg 3 times daily, Procardia XL 30 mg daily continue therapy STROKE Vital Signs/Narrative: Vital Signs Pulse BP 07/12/19 04:54 80 156/80 H Inpatient E&M: [id number] Subs Hosp L2
[2019-07-12] MEDS: Menthol/Lanolin/Calamine/Znox 113 GM Tube 1 APPLIC TOPICAL ×2 (08:28→21:58)
[2019-07-12 08:47] VITALS: BP 156/80; PULSE 80; RESP 16; TEMP 36.8; O2SAT 97
--- NOTE | 2019-07-12 10:07 | CASEMGMT ---
Social Work IDT met with patient for Team Meeting. Discussed patient's progress in therapy. Pt is min to mod assist transfers, ambulating 95 ft with FWW at min assist. Pt's left arm coordination and cardiac surgeon strength is improving and was able to hold hand on walker 75% of the time. Pt is mod assist for shower transfers, max assist for bathing, toileting tasks, and dressing due to balance and left arm weakness. ST is working on attention, memory and swallowing strategies. Pt is doing well and LCD 07/12. Physician discussed adjusting medications for blood pressure, blood sugars and renal issues. Explained insurance update is 07/12, and continued stay is not guaranteed. works during the day and pt would need to be independent and safe at home alone prior to discharging home. IDT recommending continued therapy and nursing. Will continue to follow. TAISHA WootenW
[2019-07-12 11:35] VITALS: BMI 39.9
[2019-07-12] MEDS: Insulin Lispro 100 UNIT/ML INSULN.PEN SC ×2 (11:44→21:59)
[2019-07-12 12:05] LABS: Bedside Glucose 169 mg/dL (70-110)
[2019-07-12 14:17] VITALS: BP 113/55; PULSE 90
[2019-07-12 14:55] VITALS: PULSE 90
[2019-07-12] MEDS: Labetalol 200 MG Tablet 400 MG PO ×2 (14:56→22:00)
[2019-07-12] MEDS: Insulin Lispro 100 UNIT/ML INSULN.PEN 16 UNIT SC (16:53)
[2019-07-12 17:36] LABS: Bedside Glucose 144 mg/dL (70-110)
[2019-07-12 21:57] VITALS: BP 123/61; PULSE 72
[2019-07-12] MEDS: Nystatin Powder 15gm Bottle 1 APPLIC TOPICAL (22:00)
[2019-07-12] MEDS: Atorvastatin Calcium 80 MG Tablet PO (22:00)
[2019-07-12 22:06] LABS: Bedside Glucose 200 mg/dL (70-110)
[2019-07-12 22:17] VITALS: BP 165/84; PULSE 79; RESP 18; TEMP 36.7; O2SAT 98
[2019-07-12 23:07] VITALS: BMI 39.9
[2019-07-13] VITALS (7 sets, daily range): BP systolic 138–164; BP diastolic 62–82; PULSE 63–72; RESP 18; TEMP 36.6; O2SAT 98–99; BMI 39.9
[2019-07-13] MEDS: Acetaminophen 325 MG Tablet 650 MG PO ×2 (04:06→14:55)
[2019-07-13] MEDS: Labetalol 200 MG Tablet 400 MG PO ×3 (05:23→22:06)
[2019-07-13] MEDS: hydrALAZINE 50 MG Tablet 100 MG PO ×3 (05:23→22:04)
[2019-07-13] MEDS: Ipratropium Bromide 0.06% NASAL SPRAY 2 SPRAY NASAL ×3 (05:24→22:55)
[2019-07-13] MEDS: Nystatin Powder 15gm Bottle 1 APPLIC TOPICAL ×2 (05:24→22:56)
[2019-07-13 07:00] LABS: Bedside Glucose 94 mg/dL (70-110)
[2019-07-13] MEDS: Insulin Lispro 100 UNIT/ML INSULN.PEN 10 UNIT SC ×2 (07:55→12:16)
[2019-07-13] MEDS: NIFEdipine 30 MG Tablet PO (07:56)
[2019-07-13] MEDS: Allopurinol 100 MG Tablet 200 MG PO (07:56)
[2019-07-13] MEDS: Lisinopril 5 MG Tablet PO (07:56)
[2019-07-13] MEDS: Aspirin 81 MG TAB.CHEW PO (07:56)
[2019-07-13] MEDS: Senna/Docusate Sodium 1 Tablet 2 TABLET PO ×2 (07:56→22:05)
[2019-07-13] MEDS: Fluticasone 0.05% 1 SPRAY NASAL.SRY NASAL ×2 (07:58→22:03)
[2019-07-13] MEDS: Menthol/Lanolin/Calamine/Znox 113 GM Tube 1 APPLIC TOPICAL ×2 (08:00→22:55)
[2019-07-13 12:25] LABS: Bedside Glucose 134 mg/dL (70-110)
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
[2019-07-13] MEDS: Insulin Lispro 100 UNIT/ML INSULN.PEN 16 UNIT SC (16:51)
[2019-07-13 17:10] LABS: Bedside Glucose 113 mg/dL (70-110)
[2019-07-13] MEDS: Atorvastatin Calcium 80 MG Tablet PO (22:04)
[2019-07-13 22:16] LABS: Bedside Glucose 125 mg/dL (70-110)
--- NOTE | 2019-07-13 23:00 | NURSING ---
2300 pt refusing 2 L NC for HS. pt states I don't wear it at home. PROCESS CHECKER states he took it off the previous night
[2019-07-14] VITALS (8 sets, daily range): BP systolic 138–163; BP diastolic 71–82; PULSE 63–81; RESP 16–18; TEMP 36.5–37; O2SAT 96–97; BMI 39.9
[2019-07-14] MEDS: hydrALAZINE 50 MG Tablet 100 MG PO ×3 (05:23→21:36)
[2019-07-14] MEDS: Ipratropium Bromide 0.06% NASAL SPRAY 2 SPRAY NASAL ×3 (05:24→21:36)
[2019-07-14] MEDS: Labetalol 200 MG Tablet 400 MG PO ×3 (05:24→21:34)
[2019-07-14] MEDS: Nystatin Powder 15gm Bottle 1 APPLIC TOPICAL ×2 (05:25→21:34)
[2019-07-14] MEDS: Acetaminophen 325 MG Tablet 650 MG PO (06:18)
[2019-07-14 06:51] LABS: Bedside Glucose 152 mg/dL (70-110)
[2019-07-14] MEDS: Insulin Lispro 100 UNIT/ML INSULN.PEN 10 UNIT SC ×2 (07:26→11:50)
[2019-07-14] MEDS: Insulin Lispro 100 UNIT/ML INSULN.PEN SC ×2 (07:26→11:51)
[2019-07-14] MEDS: Aspirin 81 MG TAB.CHEW PO (07:27)
[2019-07-14] MEDS: Fluticasone 0.05% 1 SPRAY NASAL.SRY NASAL ×2 (07:28→20:06)
[2019-07-14] MEDS: Allopurinol 100 MG Tablet 200 MG PO (07:29)
[2019-07-14] MEDS: Senna/Docusate Sodium 1 Tablet 2 TABLET PO ×2 (07:30→21:34)
[2019-07-14] MEDS: NIFEdipine 30 MG Tablet PO ×2 (07:30→21:34)
[2019-07-14] MEDS: Lisinopril 5 MG Tablet PO (07:31)
[2019-07-14] MEDS: Menthol/Lanolin/Calamine/Znox 113 GM Tube 1 APPLIC TOPICAL ×2 (07:32→21:36)
--- NOTE | 2019-07-14 10:06 | PCM.PN.BLA ---
Progress Note Afebrile Blood pressures are still elevated and ranged from 138/62-164/82 on 07/13/2019. The heart rate is within normal limits. Blood sugar record was reviewed and the blood sugars are under good control. He is maintaining appropriate oxygen saturation on room air Good oral intake He is tolerating allopurinol without any exacerbation of his acute gouty arthritis. He denies any pain in the right ankle today. No complaints. alert, NAD, sitting in the WC at the time of my exam. Lungs - CTA HRRR abd - NT, soft, BS's present pitting edema of the LLE Impressions 1. Diabetes mellitus type 3-[id number] 2. Hypertension-improving with adjustment in medications 3. Acute gouty arthritis-resolved 4. Hyperuricemia-tolerating allopurinol 5. Morbid obesity - weight loss recommended 6. Stage IV chronic renal failure-follows with a industrial relations analyst 7. History of CHRISTIAN Discussed once again the need to keep the BS's, BP, cholesterol well controlled to prevent future cardiovascular events. If he has never been evaluated for silent cardiac ischemia would consider a OP pharmacologic stress going forward Will need an OP sleep study and follow up with pulmonary medicine STROKE Vital Signs/Narrative: Vital Signs Temp Pulse Resp BP Pulse Ox 07/14/19 07:49 98.6 F 75 18 154/82 H 96 Inpatient E&M: [id number] Subs Hosp L2
[2019-07-14 11:36] LABS: Bedside Glucose 248 mg/dL (70-110)
[2019-07-14 16:50] LABS: Bedside Glucose 92 mg/dL (70-110)
[2019-07-14] MEDS: Insulin Lispro 100 UNIT/ML INSULN.PEN 16 UNIT SC (16:56)
[2019-07-14 20:46] LABS: Bedside Glucose 85 mg/dL (70-110)
[2019-07-15] VITALS (7 sets, daily range): BP systolic 158–163; BP diastolic 73–77; PULSE 65–74; RESP 16; TEMP 36.7–36.8; O2SAT 95–98; BMI 39.9
[2019-07-15] MEDS: Ipratropium Bromide 0.06% NASAL SPRAY 2 SPRAY NASAL ×3 (05:20→21:12)
[2019-07-15] MEDS: hydrALAZINE 50 MG Tablet 100 MG PO ×3 (05:20→21:12)
[2019-07-15] MEDS: Nystatin Powder 15gm Bottle 1 APPLIC TOPICAL ×2 (05:22→21:08)
[2019-07-15] MEDS: Labetalol 200 MG Tablet 400 MG PO ×3 (05:22→21:08)
[2019-07-15] MEDS: Acetaminophen 325 MG Tablet 650 MG PO ×2 (05:58→13:49)
[2019-07-15 06:51] LABS: Bedside Glucose 116 mg/dL (70-110)
[2019-07-15 06:55] LABS: Magnesium 1.9 mg/dL (1.6-2.6)
[2019-07-15] MEDS: Aspirin 81 MG TAB.CHEW PO (07:43)
[2019-07-15] MEDS: Fluticasone 0.05% 1 SPRAY NASAL.SRY NASAL ×2 (07:43→20:05)
[2019-07-15] MEDS: Insulin Lispro 100 UNIT/ML INSULN.PEN 10 UNIT SC ×2 (07:44→11:33)
[2019-07-15] MEDS: Allopurinol 100 MG Tablet 200 MG PO (07:44)
[2019-07-15] MEDS: Menthol/Lanolin/Calamine/Znox 113 GM Tube 1 APPLIC TOPICAL ×2 (07:45→21:12)
[2019-07-15] MEDS: NIFEdipine 30 MG Tablet PO ×2 (07:45→21:08)
[2019-07-15] MEDS: Senna/Docusate Sodium 1 Tablet 2 TABLET PO (07:45)
--- NOTE | 2019-07-15 07:52 | NURSING ---
this nurse attempts to put am SHREE wrap on this morning. pt refuses and states that it makes his leg throb and he doesn't want to wear it. pt agreeable to elevate on pillow at this time to try to reduce swelling. pt states no discomfort at this time. will continue to monitor edema to LLE this shift.
[2019-07-15] MEDS: Insulin Lispro 100 UNIT/ML INSULN.PEN SC (11:33)
[2019-07-15 11:45] LABS: Bedside Glucose 164 mg/dL (70-110)
[2019-07-15] MEDS: Insulin Lispro 100 UNIT/ML INSULN.PEN 16 UNIT SC (16:24)
[2019-07-15 16:41] LABS: Bedside Glucose 115 mg/dL (70-110)
[2019-07-15 22:20] LABS: Bedside Glucose 76 mg/dL (70-110)
[2019-07-16] VITALS (8 sets, daily range): BP systolic 128–165; BP diastolic 66–79; PULSE 66–78; RESP 16–18; TEMP 36.5–36.6; O2SAT 95–97; BMI 39.9
[2019-07-16] MEDS: Acetaminophen 325 MG Tablet 650 MG PO (03:45)
[2019-07-16] MEDS: Labetalol 200 MG Tablet 400 MG PO ×3 (06:31→22:03)
[2019-07-16] MEDS: Ipratropium Bromide 0.06% NASAL SPRAY 2 SPRAY NASAL ×3 (06:31→22:05)
[2019-07-16] MEDS: hydrALAZINE 50 MG Tablet 100 MG PO ×3 (06:31→22:04)
[2019-07-16] MEDS: Nystatin Powder 15gm Bottle 1 APPLIC TOPICAL ×2 (06:33→22:43)
[2019-07-16 06:40] LABS: Bedside Glucose 111 mg/dL (70-110)
[2019-07-16 06:55] LABS: Hematocrit 33.7 % (40-54); Hemoglobin 10.8 g/dL (13.0-16.5); Mean Corpuscular Hgb 30.9 pg (27.0-32.0); Mean Corpuscular Volume 96.3 fL (80-94); Mean Platelet Vol. 11.2 fl (6.2-12.0); Platelet Count 192 K/mm3 (150-450); RBC Distribution Width CV 14.4 % (11.6-14.6); White Blood Count 8.9 K/mm3 (4.4-11.0)
[2019-07-16 07:15] LABS: Anion Gap 6 (5-15); BUN 60 mg/dL (7-18); BUN/Creat Ratio 23.2 RATIO (10-20); Calcium,Total 8.4 mg/dL (8.5-10.1); Chloride 115 mmol/L (98-107); Creatinine, Serum 2.59 mg/dL (0.70-1.30); EST Glomerular Filtration Rate 27 mL/min (>60); Est Glom Filt Rate - Afr Amer 32 mL/min (>60); Estimated Creatinine Clearance 26.34 ml/min; Glucose 124 mg/dL (74-106); Phosphorus 3.6 mg/dL (2.5-4.9); Potassium 4.4 mmol/L (3.5-5.1); Sodium Level 145 mmol/L (136-145)
[2019-07-16] MEDS: Insulin Lispro 100 UNIT/ML INSULN.PEN 10 UNIT SC ×2 (08:04→12:37)
[2019-07-16] MEDS: Aspirin 81 MG TAB.CHEW PO (08:04)
[2019-07-16] MEDS: Allopurinol 100 MG Tablet 200 MG PO (08:05)
[2019-07-16] MEDS: Fluticasone 0.05% 1 SPRAY NASAL.SRY NASAL ×2 (08:05→19:42)
[2019-07-16] MEDS: Senna/Docusate Sodium 1 Tablet 2 TABLET PO ×2 (08:06→22:04)
[2019-07-16] MEDS: NIFEdipine 30 MG Tablet PO ×3 (08:06→22:43)
[2019-07-16] MEDS: Menthol/Lanolin/Calamine/Znox 113 GM Tube 1 APPLIC TOPICAL ×2 (08:07→22:05)
--- NOTE | 2019-07-16 11:10 | PCM.PN.BLA ---
Progress Note Afebrile VSS-blood pressure is coming under better control. The blood pressure this morning at 7 AM was 142/71 and at 8 AM it was 140/66. Heart rate is within normal limits. Maintaining appropriate oxygen saturation on RA Oral intake is good Discussed with nursing - no problems that need addressed Reviewed the PT/OT notes. He is ambulating without a wheel chair follow now and he is doing stairs. He was able to lift the L arm enough to put his deodorant on today. He still has a left UE apraxia. Medication list reviewed. Blood sugar record was reviewed and the blood sugars are under good control. The blood sugar last night at at bedtime was 76 but his fasting is 111 today. All lab was personally reviewed. Hemoglobin today is 10.8, down from 12.1 on 07/09/2019. White blood cell count and platelets are within normal limits. MCV is 96.3. Creatinine today is 2.59, down from 2.79 at admission. The BUN is 60. Phosphorus is within normal limits. Magnesium is normal. Potassium is 4.4. He is having some back spasms at night now but they are relieved with Tylenol. He has been unable to tolerate the SHREE wraps so he is trying to elevate the L leg when he is sitting in the recliner and in the bed. He denies chest pain, cough, shortness of breath, palpitations, cephalgia. Alert, oriented x3, no apparent distress, sitting in the recliner with his legs dependent. Lungs-clear to auscultation Heart-regular rate and rhythm Abdomen-obese, soft, nontender to palpation, bowel sounds present No edema in the right lower extremity. The edema in the left lower extremity is considerably decreased with frequent elevation of the leg during the day. No rashes, no skin breakdown. He is getting more movement in the Left hand and the left shoulder. He can lift his left arm now without assist from the RUE. Impressions 1. Debility secondary to ischemic CVA in the right posterior internal capsule with left side weakness, arm greater than leg 2. Diabetes mellitus type 2-in very good control at present 3. Resistant hypertension secondary to stage IV chronic renal failure requiring multiple antihypertensives. Blood pressure is coming under better control with transition from amlodipine to Procardia XL. We will continue to adjust the blood pressure medications as necessary to decrease the blood pressure less than 130/80. 4. Hyperuricemia-tolerating allopurinol without adverse side effects. Will need to recheck uric acid in 1 month and if the uric acid is not less than 6 will increase by 100 mg and repeat in another month. The goal uric acid is less than 6. 5. Stage IV chronic renal failure-stable 6. Rhinitis medicamentosa-the nasal congestion has resolved with Flonase and Atrovent nasal spray and he is able to breathe through his nose at night. 7. History of CHRISTIAN-noncompliant with CPAP therapy because he could not breathe through his nose. He may be able to tolerate the CPAP now since he is no longer congested. Procardia was increased to 60 mg every morning and 30 mg nightly. Heart rate is within normal limits without any tachycardia. Continue current drug regimen Continue therapy - he is having good improvement and is very motivated to do his therapy. He was unaware that the swelling in the L LE is due to past trauma and venous insufficiency. He thought it was due to the statin and he discontinued it. But the swelling did not go away and he never restarted the statin. He is currently tolerating the statin without any muscle pain. We discussed the major side effects of statins.......muscle pain and elevated LFT's. I think education is extremely important in this non-compliant diabetic with HTN, HLD, stage 4 CRF, CVA and CHRISTIAN (sent his CPAP unit back 3 years ago). Decrease the insulin at supper by 2 units PT/INR in the a.m. Check a Hemoccult stool - He is on chronic warfarin therapy. Start famotidine 20 mg p.o. twice daily. STROKE Vital Signs/Narrative: Vital Signs Pulse BP 07/16/19 08:00 66 140/66 H Inpatient E&M: [id number] Subs Hosp L2
[2019-07-16 11:51] LABS: Bedside Glucose 82 mg/dL (70-110)
[2019-07-16] MEDS: Famotidine 20 MG Tablet PO (12:39)
[2019-07-16 16:50] LABS: Bedside Glucose 115 mg/dL (70-110)
[2019-07-16] MEDS: Insulin Lispro 100 UNIT/ML INSULN.PEN 14 UNIT SC (16:50)
[2019-07-16 21:16] LABS: Bedside Glucose 107 mg/dL (70-110)
[2019-07-17 03:00] VITALS: BP 152/79; PULSE 79
[2019-07-17 05:05] VITALS: PULSE 74
[2019-07-17] MEDS: hydrALAZINE 50 MG Tablet 100 MG PO ×3 (05:05→21:54)
[2019-07-17] MEDS: Ipratropium Bromide 0.06% NASAL SPRAY 2 SPRAY NASAL ×3 (05:05→21:54)
[2019-07-17] MEDS: Labetalol 200 MG Tablet 400 MG PO ×3 (05:06→21:57)
[2019-07-17] MEDS: Acetaminophen 325 MG Tablet 650 MG PO (05:06)
[2019-07-17] MEDS: Nystatin Powder 15gm Bottle 1 APPLIC TOPICAL ×2 (05:06→21:56)
--- NOTE | 2019-07-17 05:28 | NURSING ---
Pt refused staff to apply SHREE wrap to LLE, stating the wrap hurts his leg.
[2019-07-17 06:56] LABS: Bedside Glucose 92 mg/dL (70-110)
[2019-07-17] MEDS: Aspirin 81 MG TAB.CHEW PO (07:23)
[2019-07-17] MEDS: Insulin Lispro 100 UNIT/ML INSULN.PEN 10 UNIT SC (07:23)
[2019-07-17] MEDS: Fluticasone 0.05% 1 SPRAY NASAL.SRY NASAL ×2 (07:23→20:03)
[2019-07-17] MEDS: Famotidine 20 MG Tablet PO (07:24)
[2019-07-17] MEDS: NIFEdipine 60 MG Tablet PO (07:24)
[2019-07-17] MEDS: Allopurinol 100 MG Tablet 200 MG PO (07:24)
[2019-07-17] MEDS: Senna/Docusate Sodium 1 Tablet 2 TABLET PO ×2 (07:24→21:57)
[2019-07-17] MEDS: Menthol/Lanolin/Calamine/Znox 113 GM Tube 1 APPLIC TOPICAL ×2 (07:25→21:55)
[2019-07-17 07:55] VITALS: BP 138/72; PULSE 71; RESP 16; TEMP 36.6; O2SAT 98
[2019-07-17 08:06] LABS: Prothrombin Time (Protime)PT. 37.4 SECONDS (11.7-14.9)
[2019-07-17 08:11] LABS: International Normalized Ratio 3.8
--- NOTE | 2019-07-17 08:39 | PCM.PN.BLA ---
Progress Note Remains afebrile Blood pressures on 07/16/2019 ranged from 128/78-165/70 He is maintaining appropriate oxygen saturation on room air. Weight is down almost 2 pounds since admission. Blood sugars are well controlled INR today is increased at 3.8 (more likely than not associated with addition of Allopurinol to his drug regimen) He has no complaints today Alert NAD Lungs - CTA HRRR abd - soft, NT, no nausea, BS [resent no openings in the skin and no rashes Impressions 1. debility due to recent ischemic CVA 2. supratherapeutic INR - more likely than not due to the addition of Allopurinol to the drug regimen 3. Hyperuricemia with acute gouty arthritis which resolved after 3 days of Prednisone 20 mg daily 4. Hypoglycemia - will adjust the insulin hold the warfarin. Recheck the INR on . decrease the allopurinol to 100 mg daily now and recheck a UA in 1 month. If the uric acid is still over 6 will increase by 50 mg monthly until adverse SE's occur or the UA is < 6 - I reinforced with him that he will need to stay on this medication to prevent gout since he has CRF. He will also need to adhere to the low purine diet. Continue education with him - he has poor insight into his multiple comorbidities and his risk for cardiovascular events going forward. He has refused to wear the SHREE wrap on the LLE also.......he is trying to elevate more.....he has had venous stasis ulcers in the past and he was made aware that if the swelling is not controlled he is at increased risk for recurrent venous stasis ulcers and infection. He had a low BS at lunch today and the AM dose of Humalog has been decreased. STROKE Vital Signs/Narrative: Vital Signs Temp Pulse Resp BP Pulse Ox 07/17/19 07:55 97.8 F 71 16 138/72 H 98 07/17/19 05:05 74 Inpatient E&M: [id number] Subs Hosp L2
[2019-07-17 11:25] LABS: Bedside Glucose 70 mg/dL (70-110)
[2019-07-17] MEDS: Insulin Lispro 100 UNIT/ML INSULN.PEN 6 UNIT SC ×2 (12:17→17:22)
[2019-07-17 13:39] VITALS: BMI 39.9
[2019-07-17 13:55] VITALS: PULSE 74
[2019-07-17 14:15] VITALS: BP 129/70
[2019-07-17 16:55] LABS: Bedside Glucose 89 mg/dL (70-110)
[2019-07-17 16:55] LABS: Bedside Glucose 58 mg/dL (70-110)
[2019-07-17 21:45] LABS: Bedside Glucose 99 mg/dL (70-110)
[2019-07-17 21:54] VITALS: PULSE 66
[2019-07-17] MEDS: NIFEdipine 30 MG Tablet PO (21:57)
--- NOTE | 2019-07-17 22:00 | NURSING ---
pt refused hs dose of lipitor this hs. pt states that the lipitor is the reason his leg is swollen and he will not take it. pt educated on the need for lipitor for hyperlipidema. pt states he understands. will continue to educate.
[2019-07-18] VITALS (7 sets, daily range): BP systolic 140–158; BP diastolic 66–71; PULSE 63–68; RESP 18; TEMP 36.6–36.9; O2SAT 98; BMI 39.9
[2019-07-18] MEDS: Acetaminophen 325 MG Tablet 650 MG PO (03:50)
[2019-07-18] MEDS: hydrALAZINE 50 MG Tablet 100 MG PO ×3 (05:10→21:21)
[2019-07-18] MEDS: Labetalol 200 MG Tablet 400 MG PO ×3 (05:10→21:17)
[2019-07-18] MEDS: Ipratropium Bromide 0.06% NASAL SPRAY 2 SPRAY NASAL ×3 (05:10→21:20)
[2019-07-18] MEDS: Nystatin Powder 15gm Bottle 1 APPLIC TOPICAL ×2 (05:11→21:18)
[2019-07-18 06:55] LABS: Bedside Glucose 63 mg/dL (70-110)
--- NOTE | 2019-07-18 07:45 | PCM.PN.BLA ---
Progress Note Afebrile Blood pressures are coming under better control. The blood pressure this morning is 141/69. Good oral intake Maintaining appropriate oxygen saturation on room air Blood sugar record was reviewed. The blood sugars were generally low yesterday and the blood sugar at supper was 58. Blood sugar at at bedtime was 99 and he received 10 units of Lantus and the blood sugar this morning is 63. He is asymptomatic. Mealtime insulin was decreased yesterday. When I entered his room his legs were dependent and he was sitting in the recliner. He has been told multiple times by different people that the swelling in his legs will not go down if the legs are always dependent. He has had venous stasis ulcers in the past. HE is not following the recommendations. He has no complaints today. HRRR L- CTA BL peripheral edema with non-compliance with elevation no change in the neuro exam. Impressions 1. DM II - he is requiring less medication now due to dietary compliance. Continue to adjust the insulin to keep all BS's < 180 and no BS's < 80 2. HTN - coming under better control 3. debility due to R internal capsule ischemic CVA 4. morbid obesity 5. CHRISTIAN - non-compliant with CPAP - will need sleep study as OP 6. Venous insufficiency - non-compliant with compression and elevation 7. stage 4 CRF 8. Hyperuricemia-tolerating allopurinol 100 mg daily 9. Acute gouty arthritis-resolved 10. 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 PT/INR ordered for the a.m. I have a suspicion that Mr. Márquez is not going to do well going forward. He does not take good care of himself and he is resistant to taking advice on how to positively impact his health going forward. Will continue to career and guidance counselor him while he is on IP rehab and make recommendations for follow up as an OP. STROKE Vital Signs/Narrative: Vital Signs Temp Pulse Resp BP Pulse Ox 07/18/19 07:31 98.4 F 63 18 141/69 H 98 07/18/19 05:10 63 Inpatient E&M: [id number] Subs Hosp L2
[2019-07-18 08:36] LABS: Bedside Glucose 166 mg/dL (70-110)
[2019-07-18] MEDS: Insulin Lispro 100 UNIT/ML INSULN.PEN SC (08:37)
[2019-07-18] MEDS: Insulin Lispro 100 UNIT/ML INSULN.PEN 8 UNIT SC (08:37)
[2019-07-18] MEDS: Allopurinol 100 MG Tablet PO (08:38)
[2019-07-18] MEDS: Aspirin 81 MG TAB.CHEW PO (08:38)
[2019-07-18] MEDS: Fluticasone 0.05% 1 SPRAY NASAL.SRY NASAL ×2 (08:38→21:21)
[2019-07-18] MEDS: NIFEdipine 60 MG Tablet PO (08:39)
[2019-07-18] MEDS: Famotidine 20 MG Tablet PO (08:39)
[2019-07-18] MEDS: Senna/Docusate Sodium 1 Tablet 2 TABLET PO ×2 (08:40→21:17)
[2019-07-18] MEDS: Menthol/Lanolin/Calamine/Znox 113 GM Tube 1 APPLIC TOPICAL ×2 (08:41→21:20)
[2019-07-18 12:00] LABS: Bedside Glucose 78 mg/dL (70-110)
[2019-07-18 12:50] LABS: Bedside Glucose 83 mg/dL (70-110)
[2019-07-18] MEDS: Insulin Lispro 100 UNIT/ML INSULN.PEN 12 UNIT SC (17:10)
[2019-07-18 17:31] LABS: Bedside Glucose 114 mg/dL (70-110)
[2019-07-18] MEDS: NIFEdipine 30 MG Tablet PO (21:18)
[2019-07-18 22:01] LABS: Bedside Glucose 121 mg/dL (70-110)
[2019-07-19] VITALS (7 sets, daily range): BP systolic 116–150; BP diastolic 67–80; PULSE 60–78; RESP 16; TEMP 36.6; O2SAT 94–96; BMI 39.9
[2019-07-19] MEDS: Labetalol 200 MG Tablet 400 MG PO ×3 (05:00→21:26)
[2019-07-19] MEDS: Ipratropium Bromide 0.06% NASAL SPRAY 2 SPRAY NASAL ×3 (05:00→21:22)
[2019-07-19] MEDS: hydrALAZINE 50 MG Tablet 100 MG PO ×3 (05:00→21:24)
[2019-07-19] MEDS: Nystatin Powder 15gm Bottle 1 APPLIC TOPICAL ×2 (05:00→22:07)
[2019-07-19] MEDS: Magnesium Hydroxide 30 ML UDC PO (05:07)
[2019-07-19 06:00] LABS: International Normalized Ratio 2.4; Prothrombin Time (Protime)PT. 25.6 SECONDS (11.7-14.9)
[2019-07-19 07:11] LABS: Bedside Glucose 120 mg/dL (70-110)
[2019-07-19] MEDS: Fluticasone 0.05% 1 SPRAY NASAL.SRY NASAL ×2 (07:34→19:58)
[2019-07-19] MEDS: Allopurinol 100 MG Tablet PO (07:34)
[2019-07-19] MEDS: Famotidine 20 MG Tablet PO (07:34)
[2019-07-19] MEDS: NIFEdipine 60 MG Tablet PO (07:34)
[2019-07-19] MEDS: Aspirin 81 MG TAB.CHEW PO (07:34)
[2019-07-19] MEDS: Senna/Docusate Sodium 1 Tablet 2 TABLET PO ×2 (07:34→21:23)
[2019-07-19] MEDS: Insulin Lispro 100 UNIT/ML INSULN.PEN 8 UNIT SC (07:35)
[2019-07-19] MEDS: Menthol/Lanolin/Calamine/Znox 113 GM Tube 1 APPLIC TOPICAL ×2 (07:40→22:01)
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
[2019-07-19 11:16] LABS: Bedside Glucose 93 mg/dL (70-110)
[2019-07-19] MEDS: Insulin Lispro 100 UNIT/ML INSULN.PEN 9 UNIT SC ×2 (12:52→16:40)
--- NOTE | 2019-07-19 13:07 | PN_ITS ---
Progress Note The patient was seen on team rounds today. His Jose participated via phone. Afebrile Blood pressures on 07/18/2019 ranged from 140/66-158/71. Blood pressure this a.m. is 138/77. Heart rate is within normal limits. Maintaining appropriate oxygen saturation on room air with no respiratory distress. Good fluid intake. He has lost approximately 3 pounds since being admitted to the inpatient rehab unit. Fasting blood sugar was 120 daily and the blood sugar prior to lunch was 93. He is eating well. He was sitting in his room in the recliner with his legs dependent when we entered his room. He did not have the SHREE wraps on and he has refused RJ hose. He told me he planned on elevating his legs when the meeting was over but, when the meeting was over he told me that he was going to go to therapy soon and so he was not going to elevate his legs. The nurses ask him to elevate his legs and he refuses and has a excuse the majority of the time No problems sleeping. Appetite is good. Denies pain. He is still requiring assistance with toileting, lower body dressing and lower body hygiene. He is still CGA with stairs and ambulation and his works [employer]. She plans on taking 1 week off when he gets home. The BR is on the second floor of the house but he does have a portable BSC. alert, did not have any questions Lungs - CTA HRRR abd - obese, NT + BL LE edema L>R Impressions 1. DM II - he is requiring less medication now due to dietary compliance. HGBA1C at admission was 9 and it needs to be less than 7 in a pt of this age with stroke Continue to adjust the insulin to keep all BS's < 180 and no BS's < 80. Will decrease the insulin at meals again today 2. HTN - coming under better control 3. debility due to R internal capsule ischemic CVA 4. morbid obesity 5. CHRISTIAN - non-compliant with CPAP - will need sleep study as OP 6. Venous insufficiency - non-compliant with compression and elevation 7. stage 4 CRF 8. Hyperuricemia-tolerating allopurinol 100 mg daily 9. Acute gouty arthritis-resolved 10. 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 restart the Coumadin at 5 mg daily Insurance update today. We do not feel that he is ready for DC yet. His agrees to come in for family training on a Tuesday prior to DC home. STROKE Vital Signs/Narrative: Vital Signs Pulse 07/19/19 12:53 78 Inpatient E&M: [id number] Subs Hosp L2
[2019-07-19 16:21] LABS: Bedside Glucose 115 mg/dL (70-110)
[2019-07-19 20:11] LABS: Bedside Glucose 86 mg/dL (70-110)
[2019-07-19] MEDS: NIFEdipine 30 MG Tablet PO (21:29)
[2019-07-20] VITALS (8 sets, daily range): BP systolic 135–161; BP diastolic 77–82; PULSE 62–75; RESP 16; TEMP 36.6–36.8; O2SAT 97–98; BMI 39.9
[2019-07-20] MEDS: Acetaminophen 325 MG Tablet 650 MG PO (03:28)
[2019-07-20] MEDS: hydrALAZINE 50 MG Tablet 100 MG PO ×3 (05:12→22:08)
[2019-07-20] MEDS: Labetalol 200 MG Tablet 400 MG PO ×3 (05:13→22:07)
[2019-07-20] MEDS: Ipratropium Bromide 0.06% NASAL SPRAY 2 SPRAY NASAL ×3 (05:13→22:08)
[2019-07-20] MEDS: Nystatin Powder 15gm Bottle 1 APPLIC TOPICAL ×2 (05:15→22:10)
[2019-07-20 06:04] LABS: Albumin, Serum 2.4 g/dL (3.2-5.0); BUN 53 mg/dL (7-18); BUN/Creat Ratio 19.1 RATIO (10-20); Calcium,Total 8.6 mg/dL (8.5-10.1); Chloride 113 mmol/L (98-107); Creatinine, Serum 2.78 mg/dL (0.70-1.30); EST Glomerular Filtration Rate 25 mL/min (>60); Est Glom Filt Rate - Afr Amer 30 mL/min (>60); Estimated Creatinine Clearance 24.54 ml/min; Glucose 116 mg/dL (74-106); Phosphorus 4.1 mg/dL (2.5-4.9); Potassium 4.3 mmol/L (3.5-5.1); Sodium Level 144 mmol/L (136-145)
[2019-07-20 07:06] LABS: Bedside Glucose 99 mg/dL (70-110)
[2019-07-20] MEDS: Insulin Lispro 100 UNIT/ML INSULN.PEN 6 UNIT SC ×2 (08:27→17:28)
[2019-07-20] MEDS: Allopurinol 100 MG Tablet PO (08:27)
[2019-07-20] MEDS: Famotidine 20 MG Tablet PO ×2 (08:28→11:42)
[2019-07-20] MEDS: Senna/Docusate Sodium 1 Tablet 2 TABLET PO ×2 (08:28→22:07)
[2019-07-20] MEDS: NIFEdipine 60 MG Tablet PO (08:28)
[2019-07-20] MEDS: Fluticasone 0.05% 1 SPRAY NASAL.SRY NASAL ×2 (08:32→19:49)
[2019-07-20] MEDS: Aspirin 81 MG TAB.CHEW PO (08:33)
[2019-07-20] MEDS: Menthol/Lanolin/Calamine/Znox 113 GM Tube 1 APPLIC TOPICAL ×2 (08:34→22:10)
--- NOTE | 2019-07-20 08:56 | PCM.PN.BLA ---
Progress Note Afebrile. Systolic blood pressures are mildly elevated. Diastolic blood pressures are within goal. Maintaining appropriate oxygen saturation on room air All lab was personally reviewed. Creatinine is stable at 2.78 and the BUN is 53. Phosphorus is normal at 4.1. Calcium is within normal limits. Stool is Hemoccult positive. Alert, no apparent distress Lungs-clear to auscultation Heart-regular rate and rhythm Abdomen-no epigastric pain with palpation, no masses, normal bowel sounds, soft Bilateral lower extremity edema, left greater than right. Impressions 1. Debility secondary to recent right internal capsule ischemic CVA 2. Diabetes mellitus type 2 not adequately controlled as an outpatient-likely secondary to noncompliance with diet. Blood sugars are low in the hospital on controlled calorie intake and we are having to decrease the insulin 3. Hyperlipidemia-noncompliant with atorvastatin 4. Bilateral lower extremity venous insufficiency, left greater than right 5. Stage IV chronic renal failure 6. Hyperuricemia with recent acute gouty arthritis that has resolved, now on Allpuinol....goal for the UA is less than 6 to prevent gout HH, Uric acid, PT/INR now Decrease the mealtime insulin and DC the HS Lantus Strongly encouraged patient to elevate his legs while he is sitting in the recliner and also to wear the Jon wraps to help control the edema in his legs STROKE Vital Signs/Narrative: Vital Signs Temp Pulse Resp BP Pulse Ox 07/20/19 07:29 98 F 63 16 149/79 H 97 07/20/19 05:12 70 161/77 H 07/20/19 05:09 70 16 161/77 H 98 Inpatient E&M: [id number] Subs Hosp L2
[2019-07-20 09:44] LABS: Hematocrit 31.6 % (40-54); Hemoglobin 10.1 g/dL (13.0-16.5)
[2019-07-20 09:57] LABS: International Normalized Ratio 1.8; Prothrombin Time (Protime)PT. 20.6 SECONDS (11.7-14.9)
[2019-07-20 10:10] LABS: Uric Acid 6.1 mg/dL (3.5-7.2)
[2019-07-20 11:11] LABS: Bedside Glucose 86 mg/dL (70-110)
[2019-07-20] MEDS: Furosemide 40 MG Tablet PO (11:42)
[2019-07-20] MEDS: Insulin Lispro 100 UNIT/ML INSULN.PEN SC (11:58)
--- NOTE | 2019-07-20 15:49 | CASEMGMT ---
Social Work Notified pt and that insurance approved pt with NRD 07/25 and continued stay is not guaranteed. still coming for family training 07/20. Martha Núñez, DRUM SAW OPERATOR CHARTER SCHOOL EXECUTIVE DIRECTOR
[2019-07-20 17:30] LABS: Bedside Glucose 109 mg/dL (70-110)
[2019-07-20 21:40] LABS: Bedside Glucose 102 mg/dL (70-110)
[2019-07-20] MEDS: NIFEdipine 30 MG Tablet PO (22:07)
[2019-07-21 00:14] VITALS: BP 153/80; PULSE 61
--- NOTE | 2019-07-21 03:49 | NURSING ---
58 hs- pt was compliant with SHREE wraps. Refused Lipitor hs dose.
[2019-07-21 06:30] LABS: International Normalized Ratio 1.8; Prothrombin Time (Protime)PT. 20.4 SECONDS (11.7-14.9)
[2019-07-21 06:46] LABS: Bedside Glucose 97 mg/dL (70-110)
[2019-07-21 06:53] VITALS: PULSE 64
[2019-07-21] MEDS: Labetalol 200 MG Tablet 400 MG PO ×3 (06:53→20:43)
[2019-07-21] MEDS: hydrALAZINE 50 MG Tablet 100 MG PO ×3 (06:53→20:41)
[2019-07-21] MEDS: Ipratropium Bromide 0.06% NASAL SPRAY 2 SPRAY NASAL ×3 (06:53→20:41)
[2019-07-21] MEDS: Nystatin Powder 15gm Bottle 1 APPLIC TOPICAL ×2 (06:54→20:42)
[2019-07-21 07:46] VITALS: BP 166/76; PULSE 74; RESP 16; TEMP 36.6; O2SAT 98
[2019-07-21] MEDS: Fluticasone 0.05% 1 SPRAY NASAL.SRY NASAL ×2 (07:54→20:40)
[2019-07-21] MEDS: Aspirin 81 MG TAB.CHEW PO (07:55)
[2019-07-21] MEDS: Allopurinol 100 MG Tablet PO (07:55)
[2019-07-21] MEDS: Insulin Lispro 100 UNIT/ML INSULN.PEN 6 UNIT SC ×2 (07:55→16:26)
[2019-07-21] MEDS: Furosemide 40 MG Tablet PO (07:56)
[2019-07-21] MEDS: Famotidine 20 MG Tablet PO (07:56)
[2019-07-21] MEDS: NIFEdipine 60 MG Tablet PO (07:57)
[2019-07-21] MEDS: Senna/Docusate Sodium 1 Tablet 2 TABLET PO ×2 (07:57→20:43)
[2019-07-21] MEDS: Menthol/Lanolin/Calamine/Znox 113 GM Tube 1 APPLIC TOPICAL ×2 (08:06→20:41)
[2019-07-21 09:21] VITALS: BMI 39.9
[2019-07-21] MEDS: Insulin Lispro 100 UNIT/ML INSULN.PEN SC (11:57)
[2019-07-21 12:16] LABS: Bedside Glucose 116 mg/dL (70-110)
[2019-07-21 14:55] VITALS: PULSE 64
[2019-07-21 16:00] VITALS: BP 153/79; PULSE 64; RESP 18; TEMP 37.1; O2SAT 97
[2019-07-21 16:45] LABS: Bedside Glucose 144 mg/dL (70-110)
[2019-07-21 20:41] VITALS: PULSE 68
[2019-07-21] MEDS: NIFEdipine 30 MG Tablet PO (20:43)
[2019-07-21 22:16] LABS: Bedside Glucose 131 mg/dL (70-110)
[2019-07-22] VITALS (7 sets, daily range): BP systolic 136–155; BP diastolic 61–72; PULSE 63–73; RESP 16–18; TEMP 36.7–36.8; O2SAT 96–99; BMI 39.9
[2019-07-22] MEDS: hydrALAZINE 50 MG Tablet 100 MG PO ×3 (05:20→21:06)
[2019-07-22] MEDS: Labetalol 200 MG Tablet 400 MG PO ×3 (05:24→21:07)
[2019-07-22] MEDS: Ipratropium Bromide 0.06% NASAL SPRAY 2 SPRAY NASAL ×3 (05:24→21:06)
[2019-07-22] MEDS: Nystatin Powder 15gm Bottle 1 APPLIC TOPICAL ×2 (05:25→21:09)
[2019-07-22 05:56] LABS: International Normalized Ratio 2.1; Prothrombin Time (Protime)PT. 23.4 SECONDS (11.7-14.9)
[2019-07-22 07:15] LABS: Bedside Glucose 101 mg/dL (70-110)
[2019-07-22] MEDS: Fluticasone 0.05% 1 SPRAY NASAL.SRY NASAL ×2 (07:56→21:05)
[2019-07-22] MEDS: Insulin Lispro 100 UNIT/ML INSULN.PEN 6 UNIT SC ×2 (07:56→16:46)
[2019-07-22] MEDS: Aspirin 81 MG TAB.CHEW PO (07:56)
[2019-07-22] MEDS: Allopurinol 100 MG Tablet PO (07:57)
[2019-07-22] MEDS: Senna/Docusate Sodium 1 Tablet 2 TABLET PO ×2 (07:58→21:08)
[2019-07-22] MEDS: NIFEdipine 60 MG Tablet PO (07:58)
[2019-07-22] MEDS: Furosemide 40 MG Tablet PO (07:58)
[2019-07-22] MEDS: Famotidine 20 MG Tablet PO (07:58)
[2019-07-22] MEDS: Magnesium Hydroxide 30 ML UDC PO (07:59)
[2019-07-22] MEDS: Menthol/Lanolin/Calamine/Znox 113 GM Tube 1 APPLIC TOPICAL ×2 (08:04→21:08)
[2019-07-22] MEDS: Insulin Lispro 100 UNIT/ML INSULN.PEN SC (11:51)
[2019-07-22 12:55] LABS: Bedside Glucose 142 mg/dL (70-110)
--- NOTE | 2019-07-22 16:32 | NURSING ---
Pt non-compliant with elevating BLE. Did allow SHREE wrap to be applied but refused any kind of elevation. Education provided.
[2019-07-22 16:55] LABS: Bedside Glucose 127 mg/dL (70-110)
[2019-07-22] MEDS: NIFEdipine 30 MG Tablet PO (21:07)
[2019-07-22 21:55] LABS: Bedside Glucose 126 mg/dL (70-110)
[2019-07-23] VITALS (7 sets, daily range): BP systolic 148–155; BP diastolic 71–74; PULSE 64–74; RESP 16; TEMP 36.6–36.7; O2SAT 98–99; BMI 39.9
[2019-07-23] MEDS: hydrALAZINE 50 MG Tablet 100 MG PO ×3 (05:08→21:50)
[2019-07-23] MEDS: Ipratropium Bromide 0.06% NASAL SPRAY 2 SPRAY NASAL ×3 (05:08→21:50)
[2019-07-23] MEDS: Labetalol 200 MG Tablet 400 MG PO ×3 (05:09→21:49)
[2019-07-23 06:09] LABS: International Normalized Ratio 2.1; Prothrombin Time (Protime)PT. 23.3 SECONDS (11.7-14.9)
[2019-07-23 06:21] LABS: Anion Gap 7 (5-15); BUN 53 mg/dL (7-18); BUN/Creat Ratio 18.1 RATIO (10-20); Calcium,Total 8.7 mg/dL (8.5-10.1); Chloride 110 mmol/L (98-107); Creatinine, Serum 2.93 mg/dL (0.70-1.30); EST Glomerular Filtration Rate 23 mL/min (>60); Est Glom Filt Rate - Afr Amer 28 mL/min (>60); Estimated Creatinine Clearance 23.29 ml/min; Glucose 125 mg/dL (74-106); Potassium 3.9 mmol/L (3.5-5.1); Sodium Level 142 mmol/L (136-145)
[2019-07-23 07:06] LABS: Bedside Glucose 114 mg/dL (70-110)
[2019-07-23] MEDS: Furosemide 40 MG Tablet PO (07:41)
[2019-07-23] MEDS: Allopurinol 100 MG Tablet PO (07:41)
[2019-07-23] MEDS: Famotidine 20 MG Tablet PO (07:41)
[2019-07-23] MEDS: NIFEdipine 60 MG Tablet PO (07:41)
[2019-07-23] MEDS: Fluticasone 0.05% 1 SPRAY NASAL.SRY NASAL ×2 (07:41→20:06)
[2019-07-23] MEDS: Aspirin 81 MG TAB.CHEW PO (07:41)
[2019-07-23] MEDS: Senna/Docusate Sodium 1 Tablet 2 TABLET PO ×2 (07:41→21:50)
[2019-07-23] MEDS: Insulin Lispro 100 UNIT/ML INSULN.PEN 6 UNIT SC ×2 (07:42→17:28)
[2019-07-23] MEDS: Menthol/Lanolin/Calamine/Znox 113 GM Tube 1 APPLIC TOPICAL ×2 (07:46→21:51)
--- NOTE | 2019-07-23 08:55 | PCM.PN.BLA ---
Progress Note Afebrile VSS Maintaining appropriate oxygen saturation on RA Oral intake is good Discussed with nursing -patient refuses both Jon wraps to the left lower extremity to control edema secondary to venous insufficiency and lymphedema and Lipitor because he continues to maintain that Lipitor causes swelling of one leg. He has been educated on the etiology of the swelling to the LLE and the risk associated with not controlling cholesterol on more than 1 occasion. The 10 year CV risk is 47.2%. He also has stage 4 CRF and poorly controlled DM as an OP. Reviewed the PT/OT/ST notes Medication list reviewed. Alert, no apparent distress Lungs-clear to auscultation Abdomen-soft, nontender The swelling in the lower extremities is much improved today. Since the swelling has decreased he has less pain in his legs and he is better able to tolerate the Jon wraps. The addition of Lasix 40 mg daily to his drug regimen has helped significantly with lower extremity edema. He denies lightheadedness. Denies muscle cramps. Creatinine today is 2.74 which is actually improved from 2.98 with the addition of Lasix to his drug regimen. The BUN is also decreasing. Impressions 1. 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 Diabetes mellitus type 2-we have significantly decreased his insulin use in the hospital since he is compliant with an 1800-calorie diet and this was pointed out to him. 3. Venous insufficiency-continue with Lasix 40 mg daily, compression and elevation to prevent venous stasis ulcers going forward 4. Stage IV chronic renal failure with a GFR of 25 We discussed how hemodialysis is done today and the fact that it takes 4 to 5 hours 3 times a week to do dialysis. I stressed to him that aggressively controlling his blood pressure, blood sugars and cholesterol will help prolong the life of his kidney but eventually he is going to need dialysis and I do not feel that this is going to be very much longer. I also explained that controlling these factors will also help prevent further strokes and cardiovascular events. Will check a INR in the a.m. Plan discharge tomorrow. STROKE Vital Signs/Narrative: Vital Signs Temp Pulse Resp BP Pulse Ox 07/23/19 07:43 98 F 74 16 152/73 H 99 07/23/19 05:08 74 Inpatient E&M: [id number] Subs Hosp L2
[2019-07-23] MEDS: Insulin Lispro 100 UNIT/ML INSULN.PEN SC (12:01)
[2019-07-23 12:06] LABS: Bedside Glucose 97 mg/dL (70-110)
[2019-07-23 14:19] LABS: Hematocrit 33.4 % (40-54); Hemoglobin 10.7 g/dL (13.0-16.5)
--- NOTE | 2019-07-23 15:49 | CASEMGMT ---
Social Work Spoke with pt to review family training. Pt and stated can assist pt at home - he has returned to PLOF. IDT agreeable to DC home 07/24. Recommending HHC. Pt denied HHC d/t COVID-19. No DME needs. Plan: DC home with , no needs 07/24 TAISHA WootenW
[2019-07-23 17:21] LABS: Bedside Glucose 101 mg/dL (70-110)
[2019-07-23 21:41] LABS: Bedside Glucose 124 mg/dL (70-110)
[2019-07-23] MEDS: NIFEdipine 30 MG Tablet PO (21:50)
[2019-07-23] MEDS: Atorvastatin Calcium 80 MG Tablet PO (21:50)
[2019-07-23] MEDS: Nystatin Powder 15gm Bottle 1 APPLIC TOPICAL (21:51)
[2019-07-24] VITALS (7 sets, daily range): BP systolic 151–164; BP diastolic 71–79; PULSE 58–62; RESP 16–18; TEMP 36.6–36.8; O2SAT 97–98; BMI 39.9
[2019-07-24] MEDS: hydrALAZINE 50 MG Tablet 100 MG PO ×3 (06:19→21:26)
[2019-07-24] MEDS: Ipratropium Bromide 0.06% NASAL SPRAY 2 SPRAY NASAL ×3 (06:19→21:25)
[2019-07-24] MEDS: Labetalol 200 MG Tablet 400 MG PO ×3 (06:20→21:24)
[2019-07-24] MEDS: Nystatin Powder 15gm Bottle 1 APPLIC TOPICAL ×2 (06:20→21:24)
[2019-07-24 06:40] LABS: Bedside Glucose 125 mg/dL (70-110)
[2019-07-24] MEDS: Fluticasone 0.05% 1 SPRAY NASAL.SRY NASAL ×2 (07:44→19:56)
[2019-07-24] MEDS: Insulin Lispro 100 UNIT/ML INSULN.PEN 6 UNIT SC ×2 (07:44→17:24)
[2019-07-24] MEDS: Aspirin 81 MG TAB.CHEW PO (07:44)
[2019-07-24] MEDS: Menthol/Lanolin/Calamine/Znox 113 GM Tube 1 APPLIC TOPICAL ×2 (07:45→21:25)
[2019-07-24] MEDS: Allopurinol 100 MG Tablet PO (07:45)
[2019-07-24] MEDS: NIFEdipine 60 MG Tablet PO (07:46)
[2019-07-24] MEDS: Senna/Docusate Sodium 1 Tablet 2 TABLET PO ×2 (07:46→21:24)
[2019-07-24] MEDS: Furosemide 40 MG Tablet PO (07:46)
[2019-07-24] MEDS: Famotidine 20 MG Tablet PO (07:46)
--- NOTE | 2019-07-24 08:59 | NURSING ---
pt agreeable to wear SHREE wrap today, applied by therapy during ADL. Pt refuses to elevated legs while in recliner. this nurse continues education on edema and compression of legs and elevation. pt states he understands.
--- NOTE | 2019-07-24 09:55 | PN_ITS ---
Progress Note this note was from 07/22 annd not from 07/23 Afebrile since admission Systolic blood pressure is still not adequately controlled and ranged from 1 36/61-160 4/71 over the past 48 hours. The diastolic blood pressure is within normal limits. He is maintaining appropriate oxygen saturation on room air without tachypnea Blood sugars are well controlled He has been diuresing since the addition of Lasix 40 mg daily to his drug regimen on 07/21/19. He continues to refuse to elevate his legs while in the recliner. He did allow the Jon wrap to be applied to the left lower extremity today. He did take atorvastatin 80 mg last night. He has been refusing because he thinks the Atorvastatin causes the edema in the L leg alert, edema of both LE's , improved since the addition of the Lasix to the drug regimen on Tuesday last week Lungs-clear to auscultation Abdomen-obese, soft, nontender, bowel sounds present He is now walking with a cane rather than a front wheeled walker Impressions 1. Debility secondary to recent right internal capsule ischemic CVA 2. Diabetes mellitus type 2 not adequately controlled as an outpatient-likely secondary to noncompliance with diet. Blood sugars are low in the hospital on controlled calorie intake and we are having to decrease the insulin 3. Hyperlipidemia-noncompliant with atorvastatin 4. Bilateral lower extremity venous insufficiency, left greater than right 5. Stage IV chronic renal failure Recheck a BMP in the AM to make sure that the creat is stable on Lasix 40 mg daily Plan DC for Tue. STROKE Vital Signs/Narrative: Vital Signs Temp Pulse Resp BP Pulse Ox 07/24/19 06:47 97.8 F 58 L 16 164/71 H 98 07/24/19 06:19 61 Inpatient E&M: [id number] Subs Hosp L2
[2019-07-24 11:20] LABS: Bedside Glucose 77 mg/dL (70-110)
[2019-07-24 11:56] LABS: Anion Gap 9 (5-15); BUN 51 mg/dL (7-18); BUN/Creat Ratio 18.6 RATIO (10-20); Calcium,Total 8.8 mg/dL (8.5-10.1); Chloride 110 mmol/L (98-107); Creatinine, Serum 2.74 mg/dL (0.70-1.30); EST Glomerular Filtration Rate 25 mL/min (>60); Est Glom Filt Rate - Afr Amer 30 mL/min (>60); Glucose 81 mg/dL (74-106); Potassium 3.9 mmol/L (3.5-5.1); Sodium Level 142 mmol/L (136-145)
[2019-07-24] MEDS: Insulin Lispro 100 UNIT/ML INSULN.PEN SC (12:03)
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
[2019-07-24 17:30] LABS: Bedside Glucose 64 mg/dL (70-110)
[2019-07-24 17:45] LABS: Bedside Glucose 83 mg/dL (70-110)
[2019-07-24] MEDS: NIFEdipine 30 MG Tablet PO (21:24)
[2019-07-24 21:46] LABS: Bedside Glucose 80 mg/dL (70-110)
[2019-07-25 00:57] VITALS: BP 150/72; PULSE 60
[2019-07-25] MEDS: Ipratropium Bromide 0.06% NASAL SPRAY 2 SPRAY NASAL ×2 (05:07→13:28)
[2019-07-25 05:15] VITALS: PULSE 64
[2019-07-25] MEDS: hydrALAZINE 50 MG Tablet 100 MG PO ×2 (05:15→13:48)
[2019-07-25] MEDS: Labetalol 200 MG Tablet 400 MG PO ×2 (05:16→13:48)
[2019-07-25] MEDS: Nystatin Powder 15gm Bottle 1 APPLIC TOPICAL (05:16)
--- NOTE | 2019-07-25 05:24 | NURSING ---
Pt compliant with SHREE warp application to LLE. Pt sitting in recliner with legs elevated.
[2019-07-25 06:15] LABS: International Normalized Ratio 2.5; Prothrombin Time (Protime)PT. 26.2 SECONDS (11.7-14.9)
[2019-07-25 07:06] LABS: Bedside Glucose 142 mg/dL (70-110)
[2019-07-25] MEDS: Insulin Lispro 100 UNIT/ML INSULN.PEN 6 UNIT SC (07:56)
[2019-07-25] MEDS: Fluticasone 0.05% 1 SPRAY NASAL.SRY NASAL (07:56)
[2019-07-25] MEDS: Aspirin 81 MG TAB.CHEW PO (07:56)
[2019-07-25] MEDS: Furosemide 40 MG Tablet PO (07:57)
[2019-07-25] MEDS: Allopurinol 100 MG Tablet PO (07:57)
[2019-07-25] MEDS: Famotidine 20 MG Tablet PO (07:57)
[2019-07-25] MEDS: Senna/Docusate Sodium 1 Tablet 2 TABLET PO (07:58)
[2019-07-25] MEDS: NIFEdipine 60 MG Tablet PO (07:58)
[2019-07-25 08:00] VITALS: BP 155/80; PULSE 76; RESP 16; TEMP 36.7; O2SAT 99
[2019-07-25] MEDS: Menthol/Lanolin/Calamine/Znox 113 GM Tube 1 APPLIC TOPICAL (08:02)
[2019-07-25 10:46] VITALS: BMI 39.9
[2019-07-25] MEDS: Insulin Lispro 100 UNIT/ML INSULN.PEN SC (11:48)
[2019-07-25 12:01] LABS: Bedside Glucose 111 mg/dL (70-110)
--- NOTE | 2019-07-25 13:30 | NURSING ---
Patient and given dc instruct and verbalized understanding. Appts made and verbalized. Neurology consult faxed and Dr. Marshall's office will call patient for appt.
[2019-07-25 13:40] VITALS: BP 155/80; PULSE 76; RESP 16; TEMP 36.7; O2SAT 99
[2019-07-25 13:48] VITALS: PULSE 73
== END 2019-07-25 13:40 | disposition home or self-care (01) | DRG 57 ==
PROVIDERS: Admitting Provider Internal Medicine; PCP Physician Assistant Medical; Visit Provider Internal Medicine
DX: I69.354 Hemiplegia and hemiparesis following cerebral infarction affecting left non-dominant side (principal); N18.4 Chronic kidney disease, stage 4 (severe); E66.01 Morbid (severe) obesity due to excess calories; E11.22 Type 2 diabetes mellitus with diabetic chronic kidney disease; G47.33 Obstructive sleep apnea (adult) (pediatric); Z87.891 Personal history of nicotine dependence; E78.5 Hyperlipidemia, unspecified; Z91.19 Patient's noncompliance with other medical treatment and regimen; M10.071 Idiopathic gout, right ankle and foot; Z68.39 Body mass index [BMI] 39.0-39.9, adult; I12.9 Hypertensive chronic kidney disease with stage 1 through stage 4 chronic kidney disease, or unspecified chronic kidney disease; E87.6 Hypokalemia; J31.0 Chronic rhinitis; Z79.01 Long term (current) use of anticoagulants; E11.65 Type 2 diabetes mellitus with hyperglycemia; D64.9 Anemia, unspecified; E11.40 Type 2 diabetes mellitus with diabetic neuropathy, unspecified; E11.649 Type 2 diabetes mellitus with hypoglycemia without coma; R60.0 Localized edema
CPT/HCPCS: 36415; 73610; 80048; 80053; 80069; 81001; 82043; 82274; 82570; 82962; 83735; 84100; 84550; 85014; 85018; 85027; 85610; 87086; 87088; 92507; 92523; 92526; 92610; 94762; 97110; 97112; 97116; 97163; 97166; 97530; 97535; 97802; 97803; 99251; A4216; G0463

== ENCOUNTER 2020-11-28 10:37 | Observation (INO) | payer MEDICARE, SELFPAY ==
[2020-11-28] VITALS (11 sets, daily range): BP systolic 128–168; BP diastolic 57–95; PULSE 66–106; RESP 18–24; TEMP 36.6–36.7; O2SAT 94–99; BMI 45.1; BMI 46.0
--- NOTE | 2020-11-28 10:56 | EKG12_ITS ---
Test Reason : Blood Pressure : / mmHG Vent. Rate : 070 BPM Atrial Rate : 070 BPM P-R Int : 200 ms QRS Dur : 104 ms QT Int : 472 ms P-R-T Axes : 012 -16 120 degrees QTc Int : 509 ms Normal sinus rhythm T wave abnormality, consider lateral ischemia Prolonged QT Abnormal ECG Confirmed by POP ZARATE, SY ([id number]), commissioning editor LORETO PRATHER ([id number]) on 12/02/2020 1:36:11 PM Referred By: MAURISIO Confirmed By:SY LORD MD
--- NOTE | 2020-11-28 10:59 | EDS_ITS ---
HPI History of Present Illness Chief Complaint: Shortness of Breath Narrative Narrative: Patient presents with progressive shortness of breath for the past 5 days he has a cough and sinus congestion. No fevers or chills, he does have a history of CHF but no significant weight gain, he is feeling worse when he lays down. He has lower extremity edema same. He did get his Covid vaccine in June. He underwent a recent colonoscopy 4 days ago, he was off his Coumadin prior to the colonoscopy. [facility] Medical History (Updated 11/28/20 @ 12:[address] Anthony Carrillo MD) Diabetes Hypertension Kidney disease Pulmonary embolism Stroke/cerebrovascular accident Home Medications clonidine 0.1 mg TRANSDERM. Q7D 07/04/19 [History Last Taken Unknown] hydralazine 100 mg PO TID 07/04/19 [History Last Taken Unknown] acetaminophen 650 mg PO Q6H PRN PRN tab 07/07/19 [Rx Last Taken Unknown] aspirin 81 mg PO DAILY@0800 07/07/19 [History Last Taken Unknown] allopurinol 100 mg PO DAILYCM #30 tab 07/24/19 [Rx Last Taken Unknown] insulin glargine 14 units SUBCUT DAILY #2 pen 07/24/19 [Rx Last Taken Unknown] labetalol 400 mg PO TID #180 tab 07/24/19 [Rx Last Taken Unknown] warfarin 5 mg PO DAILY@1700 #30 tab 07/24/19 [Rx Last Taken Unknown] calcitriol 0.25 mcg PO DAILY 11/28/20 [History Last Taken Unknown] doxazosin 1 mg PO DAILY 11/28/20 [History Last Taken Unknown] ferrous sulfate 325 mg PO DAILY 11/28/20 [History Last Taken Unknown] furosemide 40 mg PO BID 11/28/20 [History Last Taken Unknown] insulin lispro 6 unit SC DAILY 11/28/20 [History Last Taken Unknown] nifedipine 60 mg PO BID 11/28/20 [History Last Taken Unknown] Allergy/AdvReac Type Severity Reaction Status Date / Time No Known Allergies Allergy Verified 11/28/20 10:39 Surgical History (Updated 11/28/20 @ 11:26 by Tori Vieira) History of total hip replacement Social History Smoking Status: Former smoker ROS ROS ED ROS Narrative Past medical history: Reviewed Medications: Reviewed Social history: Noncontributory Review of systems: All systems negative except as indicated General: No fever Eyes: No visual changes ENT: Some sinus drainage Neck: No neck pain Cardiovascular: No chest pain Respiratory: Shortness of breath. He has a cough but it is nonproductive Gastrointestinal: No abdominal pain, nausea vomiting or diarrhea Genitourinary: No dysuria Musculoskeletal: Denies myalgias. Lower extremity edema which is chronic Skin: No rash Neurological: No memory loss, confusion or any focal weakness Psych: No recent behavioral changes Hematologic: No easy bleeding or easy bruising EXAM Physical Exam Narrative Exam Narrative: Physical exam General: Patient appears in some distress Head: Normocephalic, Atraumatic Eyes: Conjunctiva not pale ENT: Moist mucous membranes Neck: Supple, Nontender, No lymphadenopathy Cardiovascular: Regular rate, Regular rhythm. No obvious murmur Respiratory: Coarse bilateral breath sounds some diminished breath sounds especially in the bases. Abdomen: Soft, Nontender, Nondistended Back: Nontender, Normal Inspection. Negative for: CVA tenderness Extremities: Significant bilateral lower extremity edema which is symmetric. No signs of cellulitis. Skin: Normal color, No rash Neurological: Alert, Normal Strength, Normal Sensation Psychological: Normal affect Const Vital Signs: 11/28/20 10:39 11/28/20 11:23 Temperature 98.1 F Temperature Source Temporal Pulse Rate 69 Respiratory Rate 18 Respiratory Effort Short of Breath Respiratory Pattern Tachypnea Blood Pressure 147/65 H Blood Pressure Mean 92 Pulse Ox 99 Oxygen Delivery Method Room Air Room Air MDM MDM MDM Narrative Medical decision making narrative: Patient likely has CHF as part of his shortness of breath, the x-ray is consistent with the CHF, he has worsening stacie l function and edema. I will treat him as such at this time I do not see any infectious etiology. I will admit, his INR is subtherapeutic and he recently did have a colonoscopy, if he does not improve he may need a PE study although at this time I cannot do a CT angiogram due to his creatinine he would have to have a VQ scan. Lab Data Labs: Laboratory Results - last 24 hr 11/28/20 11/28/20 11/28/20 11:20 11:20 11:20 WBC 7.8 RBC 3.10 L Hgb 9.1 L Hct 29.4 L MCV 94.8 H MCH 29.4 MCHC 31.0 L RDW Std Deviation 53.8 H RDW Coeff of Conner 15.6 H Plt Count 254 MPV 10.8 Immature Gran % (Auto) 2.000 H Neut % (Auto) 74.3 H Lymph % (Auto) 10.2 L [place] % (Auto) 8.2 Eos % (Auto) 4.5 Baso % (Auto) 0.8 Absolute Neuts (auto) 5.8 Absolute Lymphs (auto) 0.80 L Nucleated RBC % 0 PT 15.3 H INR 1.3 Sodium 141 Potassium 4.1 Chloride 111 H Carbon Dioxide 22.0 Anion Gap 8 BUN 65 H Creatinine 3.96 H Estim Creat Clear Calc 16.78 Est GFR (MDRD) Af Amer 20 L Est GFR (MDRD) Non-Af 16 L BUN/Creatinine Ratio 16.4 Glucose 156 H Calcium 8.8 Total Bilirubin 0.50 AST 23 ALT 29 Alkaline Phosphatase 104 Troponin I High Sens 34 B-Natriuretic Peptide Total Protein 8.0 Albumin 3.1 L Globulin 4.9 H Albumin/Globulin Ratio 0.6 L 11/28/20 11:20 WBC RBC Hgb Hct MCV MCH MCHC RDW Std Deviation RDW Coeff of Conner Plt Count MPV Immature Gran % (Auto) Neut % (Auto) Lymph % (Auto) [place] % (Auto) Eos % (Auto) Baso % (Auto) Absolute Neuts (auto) Absolute Lymphs (auto) Nucleated RBC % PT INR Sodium Potassium Chloride Carbon Dioxide Anion Gap BUN Creatinine Estim Creat Clear Calc Est GFR (MDRD) Af Amer Est GFR (MDRD) Non-Af BUN/Creatinine Ratio Glucose Calcium Total Bilirubin AST ALT Alkaline Phosphatase Troponin I High Sens B-Natriuretic Peptide 552.3 H Total Protein Albumin Globulin Albumin/Globulin Ratio Radiography Diagnostic Testing: Radiology Impression Chest X-Ray 11/28/20 11:53 IMPRESSION: Patchy right pulmonary infiltrates. Electronically Signed: Robert Apodaca MD at 12:07 EDT , Service support , Discharge Plan Triage Chief Complaint: Shortness of Breath ED Provider: Anthony Carrillo Dx/Rx/DC Orders Clinical Impression: CHF exacerbation, Acute respiratory distress, Acute renal insufficiency Prescriptions: No Action hydralazine 100 MG tablet 100 mg PO TID RF: 0 clonidine 0.3 MG patch 0.1 mg TRANSDERM. Q7D RF: 0 acetaminophen 325 MG tablet 650 mg PO Q6H PRN PRN (Reason: Pain Score 1-10/Temp > 100.7 F) RF: 0 aspirin 81 MG tablet,chewable 81 mg PO DAILY@0800 RF: 0 allopurinol 100 MG tablet 100 mg PO DAILYCM Qty: 30 RF: 0 insulin glargine 100 UNITS/ML insulin pen 14 units subcut DAILY Qty: 2 RF: 0 labetalol 200 MG tablet 400 mg PO TID Qty: 180 RF: 0 warfarin 5 MG tablet 5 mg PO DAILY@1700 Qty: 30 RF: 0 doxazosin 1 mg tablet 1 mg PO DAILY RF: 0 ferrous sulfate 325 mg (65 mg iron) tablet 325 mg PO DAILY RF: 0 calcitriol 0.25 mcg capsule 0.25 mcg PO DAILY RF: 0 furosemide 40 MG tablet 40 mg PO BID RF: 0 nifedipine 90 MG tablet extended release 60 mg PO BID RF: 0 insulin lispro 100 UNIT/ML insulin pen 6 unit SC DAILY RF: 0 Primary Care Provider: Aliza Tucker Referrals: Aliza Tucker PA [Primary Care Provider] - Disposition Disposition: Acute Care Hospital [facility]
[2020-11-28] MEDS: Ipratropium/Albuterol Sulfate 3 ML AMPUL.NEB INHALATION (11:20)
[2020-11-28 11:48] LABS: Absolute Neutrophil Count 5.8 X10^3/uL (2.0-7.7); Basophil# 0.06 X10^3/uL; Basophil% 0.8 % (0-1); Eosinophil# 0.35 X10^3/uL; Eosinophils% 4.5 % (0-5); Hematocrit 29.4 % (40-54); Hemoglobin 9.1 g/dL (13.0-16.5); Lymphocyte % 10.2 % (19-41); Mean Corpuscular Hgb 29.4 pg (27.0-32.0); Mean Corpuscular Volume 94.8 fL (80-94); Mean Platelet Vol. 10.8 fl (6.2-12.0); Monocyte# 0.64 X10^3/uL; Monocyte% 8.2 % (0-10); NRBC Flagged by Analyzer 0 % (0-5); Neutrophil # 5.83 X10^3/uL (2.7-7.7); Neutrophil % 74.3 % (47-70); Platelet Count 254 K/mm3 (150-450); RBC Distribution Width CV 15.6 % (11.6-14.6); RBC Distribution Width SD 53.8 fl (35.1-43.9); White Blood Count 7.8 K/mm3 (4.4-11.0)
--- NOTE | 2020-11-28 11:53 | RAD_ITS ---
STUDY: X-RAY CHEST REASON FOR EXAM: Male, 65 years old. Sob TECHNIQUE: Single AP portable view of the chest. COMPARISON: Comparison is made with prior study dated 07/04/2019. FINDINGS: EKG electrodes are seen. Patchy infiltrates in the right midlung and right lower lobe. Follow-up is recommended. There is no demonstrated pleural abnormality. There is mild cardiac enlargement. Normal mediastinum and cyndee. Normal visualized pulmonary arteries. Normal visualized aortic arch and descending thoracic aorta. There are diffuse degenerative changes of the visualized thoracic spine. Normal visualized ribs, clavicles, and shoulders. There is no demonstrated abnormality of the visualized soft tissue structures of the upper abdomen. RAD/Chest 1 View (Portable) IMPRESSION: Patchy right pulmonary infiltrates. Electronically Signed: Robert Apodaca MD at 12:07 EDT , Service support ,
[2020-11-28 11:58] LABS: International Normalized Ratio 1.3; Prothrombin Time (Protime)PT. 15.3 SECONDS (11.7-14.9)
[2020-11-28 12:04] LABS: ALB/GLOB Ratio 0.6 RATIO (0.9-2.4); AST(SGOT) 23 U/L (15-37); Alanine Aminotransfer ALT/SGPT 29 U/L (16-61); Albumin, Serum 3.1 g/dL (3.2-5.0); Alkaline Phosphatase 104 U/L (45-117); Anion Gap 8 (5-15); BUN 65 mg/dL (7-18); BUN/Creat Ratio 16.4 RATIO (10-20); Calcium,Total 8.8 mg/dL (8.5-10.1); Chloride 111 mmol/L (98-107); Creatinine, Serum 3.96 mg/dL (0.70-1.30); EST Glomerular Filtration Rate 16 mL/min (>60); Est Glom Filt Rate - Afr Amer 20 mL/min (>60); Estimated Creatinine Clearance 16.78 ml/min; Globulin 4.9 g/dL (2.2-4.2); Glucose 156 mg/dL (74-106); Potassium 4.1 mmol/L (3.5-5.1); Sodium Level 141 mmol/L (136-145); Troponin-I HS 34 pg/mL (3.0-78.0)
[2020-11-28 12:09] LABS: BNP,B-Type NATRIURETIC PEPTIDE 552.3 pg/mL (0-100)
[2020-11-28] MEDS: Furosemide 40 MG/4 ML Vial IV ×2 (13:12→17:17)
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
--- NOTE | 2020-11-28 14:54 | PCS.PANDOC ---
PANDEMIC DOCUMENTATION INITIATED: Date: 10/27/2020 Time: 190
[2020-11-28] MEDS: hydrALAZINE 50 MG Tablet 100 MG PO ×2 (15:20→21:05)
[2020-11-28] MEDS: Labetalol 200 MG Tablet 400 MG PO ×2 (15:21→21:04)
[2020-11-28 17:07] LABS: Troponin-I HS 33 pg/mL (3.0-78.0)
[2020-11-28 17:31] LABS: Bedside Glucose 112 mg/dL (70-110)
[2020-11-28 20:00] LABS: Troponin-I HS 32 pg/mL (3.0-78.0)
[2020-11-28] MEDS: NIFEdipine 60 MG Tablet PO (21:04)
[2020-11-28] MEDS: Insulin Lispro 100 UNIT/ML INSULN.PEN SC (21:09)
[2020-11-28 23:06] LABS: Bedside Glucose 202 mg/dL (70-110)
[2020-11-28] MEDS: Acetaminophen 325 MG Tablet 650 MG PO (23:14)
[2020-11-29] VITALS (9 sets, daily range): BP systolic 134–161; BP diastolic 63–70; PULSE 61–74; RESP 16–18; TEMP 36.8–37; O2SAT 94–96
[2020-11-29] MEDS: Labetalol 200 MG Tablet 400 MG PO (05:52)
[2020-11-29] MEDS: hydrALAZINE 50 MG Tablet 100 MG PO (05:52)
[2020-11-29] MEDS: Enoxaparin 30 MG/0.3 ML Syringe SC (05:53)
--- NOTE | 2020-11-29 05:55 | EKG12_ITS ---
Test Reason : AM EKG Blood Pressure : / mmHG Vent. Rate : 073 BPM Atrial Rate : 073 BPM P-R Int : 194 ms QRS Dur : 104 ms QT Int : 466 ms P-R-T Axes : 002 -09 120 degrees QTc Int : 513 ms Normal sinus rhythm T wave abnormality, consider lateral ischemia Prolonged QT Abnormal ECG When compared with ECG of 04-JUL-2019 21:09, No significant change was found Confirmed by POP ZARATE, SY ([id number]), industrial editor LORETO PRATHER ([id number]) on 12/02/2020 2:10:56 PM Referred By: TIM Confirmed By:SY LORD MD
--- NOTE | 2020-11-29 05:55 | ECHOCS_ITS ---
Reason For Study: CHF Procedure This was a 2D Doppler, Color Flow transthoracic echocardiogram. The study was technically difficult. Contrast injection was performed. Exam performed portable in patient room. Left Ventricle Mild concentric left ventricular hypertrophy. The estimated ejection fraction is EF 55-60 %. Right Ventricle Normal right ventricle. Normal systolic function. Atria The left atrium is moderately enlarged. Normal right atrium. Mitral Valve The mitral valve is structurally normal. No prolapse or stenosis seen. Mild (1+) mitral valve insufficiency. Tricuspid Valve Normal tricuspid valve. Trivial tricuspid valve insufficiency. Aortic Valve Normal aortic valve. Pulmonic Valve The pulmonic valve is not well visualized. Great Vessels Normal aortic root. Pericardium/Pleural No pericardial effusion. Medication Diluted definity 4ml given slow IV push to enhance endocardial definition. MMode/2D Measurements & Calculations LVIDd: 5.7 cm IVSd: 1.4 cm LA dimension: 4.8 cm LVIDs: 3.9 cm LVPWd: 1.2 cm FS: 32.0 % LAV(MOD-bp): 117.5 ml LA A4 area: 31.7 cm2 LAV(MOD-bp) Indexed: 50.8 ml/m2 LAV(MOD-sp2): 125.5 ml LAV(MOD-sp4): 110.7 ml Time Measurements MV dec time: 0.23 sec Doppler Measurements & Calculations MV E max finn: 136.0 cm/sec Lat Peak E' Finn: 9.5 cm/sec Med Peak E' Finn: 11.4 cm/sec MV A max finn: 114.6 cm/sec E/E' lat: 14.3 E/E' med: 12.0 MV E/A: 1.2 MV V2 max: 152.2 cm/sec MV P1/2t max finn: 151.2 cm/sec Ao V2 max: 152.7 cm/sec MV max P.3 mmHg MV P1/2t: 90.6 msec Ao max P.3 mmHg MV V2 mean: 94.4 cm/sec MV dec slope: 488.5 cm/sec2 MV mean P.1 mmHg MV V2 VTI: 41.3 cm MVA(P1/2t): 2.4 cm2 LV V1 max: 116.5 cm/sec MR max finn: 473.7 cm/sec PA V2 max: 105.0 cm/sec LV V1 max P.4 mmHg MR max P.7 mmHg ECHO/Echo Complete W/ Contrast Interpretation Summary The estimated ejection fraction is EF 55-60 %. Preserved LV systolic Function Mild-moderate LVH Grade #2 Diastolic Dysfunction No significant change from prior echo Ordering Physician: Shelly Mtaa Referring Physician: Aliza Tucker Performed By: Angel Guardado RCS
[2020-11-29 06:33] LABS: Absolute Lymphocyte Count 1.21 X10^3/uL (0.83-4.51); Absolute Neutrophil Count 5.1 X10^3/uL (2.0-7.7); Basophil# 0.05 X10^3/uL; Basophil% 0.7 % (0-1); Eosinophil# 0.38 X10^3/uL; Eosinophils% 5.1 % (0-5); Hematocrit 26.3 % (40-54); Hemoglobin 8.2 g/dL (13.0-16.5); Lymphocyte # 1.21 X10^3/ul (0.83-4.51); Lymphocyte % 16.2 % (19-41); Mean Corp Hgb Conc 31.2 g/dL (32-36); Mean Corpuscular Hgb 29.6 pg (27.0-32.0); Mean Corpuscular Volume 94.9 fL (80-94); Mean Platelet Vol. 10.6 fl (6.2-12.0); Monocyte# 0.71 X10^3/uL; Monocyte% 9.5 % (0-10); NRBC Flagged by Analyzer 0 % (0-5); Neutrophil # 5.07 X10^3/uL (2.7-7.7); Neutrophil % 68.1 % (47-70); Platelet Count 226 K/mm3 (150-450); RBC Distribution Width CV 15.4 % (11.6-14.6); Red Blood Count 2.77 M/mm3 (4.6-6.2); White Blood Count 7.5 K/mm3 (4.4-11.0)
[2020-11-29 06:47] LABS: Bedside Glucose 114 mg/dL (70-110)
[2020-11-29 07:10] LABS: Anion Gap 8 (5-15); BUN 67 mg/dL (7-18); BUN/Creat Ratio 17.1 RATIO (10-20); Calcium,Total 8.3 mg/dL (8.5-10.1); Chloride 111 mmol/L (98-107); Creatinine, Serum 3.92 mg/dL (0.70-1.30); EST Glomerular Filtration Rate 17 mL/min (>60); Est Glom Filt Rate - Afr Amer 20 mL/min (>60); Estimated Creatinine Clearance 16.95 ml/min; Glucose 120 mg/dL (74-106); Sodium Level 141 mmol/L (136-145)
[2020-11-29] MEDS: Allopurinol 100 MG Tablet PO (10:39)
[2020-11-29] MEDS: Calcitriol 0.25 MCG Capsule PO (10:39)
[2020-11-29] MEDS: Ferrous Sulfate 325 MG Tablet PO (10:39)
[2020-11-29] MEDS: NIFEdipine 60 MG Tablet PO (10:40)
[2020-11-29] MEDS: Furosemide 40 MG/4 ML Vial IV (10:41)
[2020-11-29] MEDS: Doxazosin 1 MG Tablet PO (10:41)
[2020-11-29] MEDS: Aspirin 81 MG TAB.CHEW PO (10:43)
[2020-11-29] MEDS: 0.9% Saline Lock 10 ML Syringe IV ×2 (10:44→11:44)
[2020-11-29 10:45] LABS: Ferritin 78 ng/mL (26-388); Iron 21 ug/dL (65-175); Iron Binding Capacity,Total 253 ug/dL (250-450); PERCENT IRON SATURATION 8.3 % (15.0-55.0)
--- NOTE | 2020-11-29 11:13 | PCM.DC ---
Discharge Instructions Diet Discharge Diet: 1800 Calorie Control Diet Activity Discharge Activity: Return to Normal Activity Weight Bearing Status: Full weight bearing Follow Up Care Test Results: Test results from this visit will be discussed in further detail at your follow-up appointment, if applicable. Discharge Plan Admission Admit Date/Time: 11/28/20 13:20 Primary Reason for Your Visit: congestive heart failure Attending Provider: Jaime Osborn Primary Care Provider: Aliza Tucker Instructions Additional Instructions / Restrictions: You will need a complete blood count repeated next week due to your anemia Discharge Orders/Prescriptions Prescriptions: New allopurinol 100 mg Tablet 100 mg PO 0800 Qty: 0 RF: 0 Continued hydralazine 100 MG tablet 100 mg PO TID RF: 0 clonidine 0.3 MG patch 0.1 mg TRANSDERM. Q7D RF: 0 acetaminophen 325 MG tablet 650 mg PO Q6H PRN PRN (Reason: Pain Score 1-10/Temp > 100.7 F) RF: 0 aspirin 81 MG tablet,chewable 81 mg PO DAILY@0800 RF: 0 insulin glargine 100 UNITS/ML insulin pen 14 units subcut DAILY Qty: 2 RF: 0 labetalol 200 MG tablet 400 mg PO TID Qty: 180 RF: 0 warfarin 5 MG tablet 5 mg PO DAILY@1700 Qty: 30 RF: 0 doxazosin 1 mg tablet 1 mg PO DAILY RF: 0 ferrous sulfate 325 mg (65 mg iron) tablet 325 mg PO DAILY RF: 0 calcitriol 0.25 mcg capsule 0.25 mcg PO DAILY RF: 0 furosemide 40 MG tablet 40 mg PO BID RF: 0 nifedipine 90 MG tablet extended release 60 mg PO BID RF: 0 insulin lispro 100 UNIT/ML insulin pen 6 unit SC DAILY RF: 0 Referrals / Follow Up: Aliza Tucker PA [Primary Care Provider] - In 1 Week Disposition Disposition (needs filled in before D/C Order can be placed): Home, Self Care
--- NOTE | 2020-11-29 11:20 | PCM.DC.SUM ---
Documented by User: REBA Aguilera 11/29/20 11:27 Providers Date of Admission: 11/28/20 Primary Care Physician: DORENE Sands Reason For Visit: CHF Diagnosis Discharge Diagnosis (1) CHF exacerbation: Status: Chronic Code(s): I50.9 - Heart failure, unspecified Qualifiers: Heart failure type: diastolic Qualified Code(s): I50.33 - Acute on chronic diastolic (congestive) heart failure Medications at Discharge Home Medications clonidine 0.1 mg TRANSDERM. Q7D 07/04/19 hydralazine 100 mg PO TID 07/04/19 acetaminophen 650 mg PO Q6H PRN PRN tab 07/07/19 aspirin 81 mg PO DAILY@0800 07/07/19 insulin glargine 14 units SUBCUT DAILY #2 pen 07/24/19 labetalol 400 mg PO TID #180 tab 07/24/19 warfarin 5 mg PO DAILY@1700 #30 tab 07/24/19 calcitriol 0.25 mcg PO DAILY 11/28/20 doxazosin 1 mg PO DAILY 11/28/20 ferrous sulfate 325 mg PO DAILY 11/28/20 furosemide 40 mg PO BID 11/28/20 insulin lispro 6 unit SC DAILY 11/28/20 nifedipine 60 mg PO BID 11/28/20 allopurinol 100 mg PO 0800 #0 tab 11/29/20 Hospital Course Procedures 2-D Echocardiogram and EKG Summary of Care Provided Minutes Spent on Discharge: 35 Hospital Course: Patient is a 65-year-old male who presents to the ER with increased shortness of breath. Patient states that he has been out of his Lasix for 4 to 5 days. Patient states that he has stage IV chronic kidney disease and has follows with a circuit board inspector in [place] as he is on the waiting list for a kidney transplant. Patient was educated on importance of taking his Lasix every day to avoid fluid overload. Patient has a prescription ready for Lasix at his preferred pharmacy which she will picker tender helper today immediately following discharge. Patient noted to be anemic with a low iron. Patient states that he takes iron as this is a chronic issue for him patient will receive one dose of IV Venofer prior to discharge. Physical Exam Const alert, oriented x3 and no apparent distress General Appearance: cooperative HEENT normocephalic and head/scalp atraumatic Eyes conjunctivae normal and no scleral icterus Neck supple and no JVD General: trachea midline Resp normal respiratory effort, normal air movement and clear to auscultation bilaterally Cardio regular rate, regular rhythm, S1 normal heart sound and S2 normal heart sound GI normal to inspection, nondistended, normoactive bowel sounds, soft to palpation and non-tender Extremity normal capillary refill and no clubbing, cyanosis or edema General Extremity: no tenderness to palpation of joints or extremities Skin skin turgor normal General Skin Exam: no breakdown Lesions: no lesions Rashes: no rashes Neuro no focal motor deficits and no sensory deficits noted Speech: speech normal Motor Exam: Negative for general weakness Psych affect normal Appearance: appropriate Weight / BMI Weight Weight: 282 lb 13.649 oz Body Mass Index (BMI) 46.0 ABG / Lab / Microbiology Data Result Diagrams: 11/29/20 06:09 11/29/20 06:09 Laboratory: Laboratory Results - last 24 hr 11/28/20 11:20: WBC 7.8, RBC 3.10 L, Hgb 9.1 L, Hct 29.4 L, MCV 94.8 H, MCH 29.4, MCHC 31.0 L, RDW Std Deviation 53.8 H, RDW Coeff of Conner 15.6 H, Plt Count 254, MPV 10.8, Immature Gran % (Auto) 2.000 H, Neut % (Auto) 74.3 H, Lymph % (Auto) 10.2 L, Island % (Auto) 8.2, Eos % (Auto) 4.5, Baso % (Auto) 0.8, Absolute Neuts (auto) 5.8, Absolute Lymphs (auto) 0.80 L, Nucleated RBC % 0 11/28/20 11:20: PT 15.3 H, INR 1.3 11/28/20 11:20: Sodium 141, Potassium 4.1, Chloride 111 H, Carbon Dioxide 22.0, Anion Gap 8, BUN 65 H, Creatinine 3.96 H, Estim Creat Clear Calc 16.78, Est GFR (MDRD) Af Amer 20 L, Est GFR (MDRD) Non-Af 16 L, BUN/Creatinine Ratio 16.4, Glucose 156 H, Calcium 8.8, Total Bilirubin 0.50, AST 23, ALT 29, Alkaline Phosphatase 104, Troponin I High Sens 34, Total Protein 8.0, Albumin 3.1 L, Globulin 4.9 H, Albumin/Globulin Ratio 0.6 L 11/28/20 11:20: B-Natriuretic Peptide 552.3 H 11/28/20 13:30: COVID-19 ([facility]) Not Detected 11/28/20 16:36: Troponin I High Sens 33 11/28/20 17:16: POC Glucose 112 H 11/28/20 19:30: Troponin I High Sens 32 11/28/20 21:08: POC Glucose 202 H 11/29/20 06:09: WBC 7.5, RBC 2.77 L, Hgb 8.2 L, Hct 26.3 L, MCV 94.9 H, MCH 29.6, MCHC 31.2 L, RDW Std Deviation 54.0 H, RDW Coeff of Conner 15.4 H, Plt Count 226, MPV 10.6, Immature Gran % (Auto) 0.400, Neut % (Auto) 68.1, Lymph % (Auto) 16.2 L, Island % (Auto) 9.5, Eos % (Auto) 5.1 H, Baso % (Auto) 0.7, Absolute Neuts (auto) 5.1, Absolute Lymphs (auto) 1.21, Nucleated RBC % 0 11/29/20 06:09: Sodium 141, Potassium 4.0, Chloride 111 H, Carbon Dioxide 22.0, Anion Gap 8, BUN 67 H, Creatinine 3.92 H, Estim Creat Clear Calc 16.95, Est GFR (MDRD) Af Amer 20 L, Est GFR (MDRD) Non-Af 17 L, BUN/Creatinine Ratio 17.1, Glucose 120 H, Calcium 8.3 L 11/29/20 06:09: Iron 21 L, TIBC 253, Iron Saturation 8.3 L, Ferritin 78 11/29/20 06:40: POC Glucose 114 H Microbiology: Microbiology 11/28/20 11:18 Nasal Secretion SARS-CoV-2 Antigen (Rapid) - Final Radiography Diagnostic Testing: Radiology Impression Chest X-Ray 11/28/20 11:53 IMPRESSION: Patchy right pulmonary infiltrates. Electronically Signed: Robert Apodaca MD at 12:07 EDT , Service support , Echocardiogram 11/29/20 05:55 Interpretation Summary The estimated ejection fraction is EF 55-60 %. Preserved LV systolic Function Mild-moderate LVH Grade #2 Diastolic Dysfunction No significant change from prior echo Ordering Physician: Shelly Mata Referring Physician: Aliza Tucker Performed By: Angel Guardado RCS D/C Instructions Discharge Diet: 1800 Calorie Control Diet Weight Bearing Status: Full weight bearing Meaningful Use Info Meaningful Use Diagnoses (Choose all that apply): None applicable and CHF CHF SHREE/ARB ordered at discharge?: No Reason SHREE/ARB not ordered?: Worsening renal disease Documented LVEF (%): 55 Discharge Plan Admission Admit Date/Time: 11/28/20 13:20 Primary Reason for Your Visit: congestive heart failure Attending Provider: Jaime Osborn Primary Care Provider: Aliza Tucker Instructions Patient Instructions: Heart Failure Signs of Flare-Up, Heart Failure Additional Instructions / Restrictions: You will need a complete blood count repeated next week due to your anemia Discharge Orders/Prescriptions Prescriptions: New allopurinol 100 mg Tablet 100 mg PO 0800 Qty: 0 RF: 0 Continued hydralazine 100 MG tablet 100 mg PO TID RF: 0 clonidine 0.3 MG patch 0.1 mg TRANSDERM. Q7D RF: 0 acetaminophen 325 MG tablet 650 mg PO Q6H PRN PRN (Reason: Pain Score 1-10/Temp > 100.7 F) RF: 0 aspirin 81 MG tablet,chewable 81 mg PO DAILY@0800 RF: 0 insulin glargine 100 UNITS/ML insulin pen 14 units subcut DAILY Qty: 2 RF: 0 labetalol 200 MG tablet 400 mg PO TID Qty: 180 RF: 0 warfarin 5 MG tablet 5 mg PO DAILY@1700 Qty: 30 RF: 0 doxazosin 1 mg tablet 1 mg PO DAILY RF: 0 ferrous sulfate 325 mg (65 mg iron) tablet 325 mg PO DAILY RF: 0 calcitriol 0.25 mcg capsule 0.25 mcg PO DAILY RF: 0 furosemide 40 MG tablet 40 mg PO BID RF: 0 nifedipine 90 MG tablet extended release 60 mg PO BID RF: 0 insulin lispro 100 UNIT/ML insulin pen 6 unit SC DAILY RF: 0 Referrals / Follow Up: Aliza Tucker, PA [Primary Care Provider] - In 1 Week Disposition Disposition (needs filled in before D/C Order can be placed): Home, Self Care Documented by User: Dr. Jaime Osborn DO 11/29/20 19:27 Providers Date of Admission: 11/28/20 Reason For Visit: CHF Medications at Discharge Home Medications clonidine 0.1 mg TRANSDERM. Q7D 07/04/19 hydralazine 100 mg PO TID 07/04/19 acetaminophen 650 mg PO Q6H PRN PRN tab 07/07/19 aspirin 81 mg PO DAILY@0800 07/07/19 insulin glargine 14 units SUBCUT DAILY #2 pen 07/24/19 labetalol 400 mg PO TID #180 tab 07/24/19 warfarin 5 mg PO DAILY@1700 #30 tab 07/24/19 calcitriol 0.25 mcg PO DAILY 11/28/20 doxazosin 1 mg PO DAILY 11/28/20 ferrous sulfate 325 mg PO DAILY 11/28/20 furosemide 40 mg PO BID 11/28/20 insulin lispro 6 unit SC DAILY 11/28/20 nifedipine 60 mg PO BID 11/28/20 allopurinol 100 mg PO 0800 #0 tab 11/29/20 ABG / Lab / Microbiology Data Result Diagrams: 11/29/20 06:09 11/29/20 06:09 Discharge Plan Admission Admit Date/Time: 11/28/20 13:20 Primary Reason for Your Visit: congestive heart failure Attending Provider: Jaime Osborn Primary Care Provider: Aliza Tucker Instructions Patient Instructions: Heart Failure Signs of Flare-Up, Heart Failure Additional Instructions / Restrictions: You will need a complete blood count repeated next week due to your anemia Discharge Orders/Prescriptions Prescriptions: New allopurinol 100 mg Tablet 100 mg PO 0800 Qty: 0 RF: 0 Continued hydralazine 100 MG tablet 100 mg PO TID RF: 0 clonidine 0.3 MG patch 0.1 mg TRANSDERM. Q7D RF: 0 acetaminophen 325 MG tablet 650 mg PO Q6H PRN PRN (Reason: Pain Score 1-10/Temp > 100.7 F) RF: 0 aspirin 81 MG tablet,chewable 81 mg PO DAILY@0800 RF: 0 insulin glargine 100 UNITS/ML insulin pen 14 units subcut DAILY Qty: 2 RF: 0 labetalol 200 MG tablet 400 mg PO TID Qty: 180 RF: 0 warfarin 5 MG tablet 5 mg PO DAILY@1700 Qty: 30 RF: 0 doxazosin 1 mg tablet 1 mg PO DAILY RF: 0 ferrous sulfate 325 mg (65 mg iron) tablet 325 mg PO DAILY RF: 0 calcitriol 0.25 mcg capsule 0.25 mcg PO DAILY RF: 0 furosemide 40 MG tablet 40 mg PO BID RF: 0 nifedipine 90 MG tablet extended release 60 mg PO BID RF: 0 insulin lispro 100 UNIT/ML insulin pen 6 unit SC DAILY RF: 0 Referrals / Follow Up: Aliza Tucker PA [Primary Care Provider] - In 1 Week Disposition Disposition (needs filled in before D/C Order can be placed): Home, Self Care Charges/Coding Addendum Addendum: Patient was seen and examined independently of Heather Mata today, he feels improved since his admission, it appears that the patient has been noncompliant with taking his furosemide at home-he has been out of his medication for several days and the pharmacy tells me today that the patient's prescription has been ready for pickup for the last 2 days and the patient has not been in to get it. Patient states that the pharmacy never called him to picker tender helper his scripts. On examination he appeared in good health and spirits. Vital signs as documented. Skin warm and dry and without overt rashes. Neck without JVD, neck was supple, trachea midline, thyroid was normal. Lungs clear bilaterally, normal air movement was noted. Heart exam notable for regular rhythm, normal sounds and absence of murmurs, rubs or gallops. Abdomen unremarkable and without evidence of organomegaly, masses, or abdominal aortic enlargement. Bowel sounds are present, abdomen is not distended. Extremities nonedematous, no cyanosis was noted, no clubbing was noted. Neuro: Cranial nerves II through XII are grossly intact, no focal motor deficits were noted, sensation to light touch and pinprick intact, motor exam 5/5 throughout. Psych: Patient is alert and oriented x3, he does not appear anxious or depressed, he does not appear agitated. Patient appears stable for discharge at this time, I talked to his who was present at the time of my examination. I urged the patient to be more compliant with his medication. I have reviewed Heather Mata's discharge summary including her medical assessment and plan of care and endorse it. Visit Charges OBSV E&M: 78227 Observation care discharge
[2020-11-29] MEDS: Insulin Lispro 100 UNIT/ML INSULN.PEN SC (11:53)
[2020-11-29 14:16] LABS: Bedside Glucose 238 mg/dL (70-110)
== END 2020-11-29 14:35 | disposition home or self-care (01) ==
LOC: ED 12:27 → PCU 13:40
PROVIDERS: Nurse Practitioner Family; Admitting Provider Internal Medicine; Emergency Provider Emergency Medicine; PCP Physician Assistant Medical; Visit Provider Internal Medicine
DX: I13.0 Hypertensive heart and chronic kidney disease with heart failure and stage 1 through stage 4 chronic kidney disease, or unspecified chronic kidney disease (principal); I50.33 Acute on chronic diastolic (congestive) heart failure; N18.4 Chronic kidney disease, stage 4 (severe); E11.22 Type 2 diabetes mellitus with diabetic chronic kidney disease; D50.9 Iron deficiency anemia, unspecified; Z86.711 Personal history of pulmonary embolism; Z79.899 Other long term (current) drug therapy; Z79.4 Long term (current) use of insulin; Z79.01 Long term (current) use of anticoagulants; Z79.82 Long term (current) use of aspirin; Z87.891 Personal history of nicotine dependence; Z91.19 Patient's noncompliance with other medical treatment and regimen
CPT/HCPCS: 36415; 71045; 80048; 80053; 82728; 82962; 83540; 83550; 83880; 84484; 85025; 85610; 87426; 87635; 93005; 93306; 94640; 96365; 96366; 96372; 96375; 96376; 99218; 99251; 99285; J7050; Q9957; U0005; A4216; C8929; G0378; G0463; J1940; J2916; J3490; U0003